=== PATIENT | female | born 1960 | race Caucasian/White ===

== ENCOUNTER 2020-09-02 15:26 | Inpatient (IN) ==
[2020-09-02] MEDS ORDERED: SODIUM CHLORIDE 0.9% 1000ML 1,000 ML IV ONE (15:56)
--- NOTE | 2020-09-02 15:59 | Emergency Department Note ---
Impression & Plan Pulmonary embolus, Right leg DVT, Atrial tachycardia ED Provider Note NAME: ELIZ CHOWDHURY AGE: 60 SEX: F : 1960 ARRIVES VIA: Walk-In INFORMANT: Patient ED PROVIDER(S): Javid Daniels DO CHIEF COMPLAINT: DVT in right calf HPI: Patient is a 60-year-old female who presents to the ER for right calf pain. She notes she hurt her leg at work on 08/12. Since then she has been limping on her right lower extremity and not been using it as much. She denies any weakness but admits to pain. She is set up through [employer]. She has PT/therapy to be scheduled but has not been set up yet. This morning she woke up and is having dull ache in the right calf. She denies any chest pain or shortness of breath. No belly pain nausea vomiting or diarrhea. No dysuria urgency or frequency. No other exacerbating or remitting factors. Denies any blood thinners at this time. ROS: See above HPI for pertinent positives & negatives. A total of 10 systems reviewed and were otherwise negative. PAST MEDICAL HISTORY:See Below PAST SURGICAL HISTORY:See Below FAMILY HISTORY:See Below SOCIAL HISTORY:See Below HOME MEDICATIONS:See Below ALLERGIES:See Below VITALS:See Below PHYSICAL EXAMINATION: GENERAL: Sitting up in bed, alert, well appearing, well nourished, no distress, non-toxic EYE EXAM: normal conjunctiva. OROPHARYNX: no exudate, no erythema, lips, buccal mucosa, and tongue normal and mucous membranes are moist NECK: supple, no nuchal rigidity, no adenopathy, non-tender LUNGS: Clear to auscultation. Normal chest wall mechanics HEART: no murmurs, S1 normal and S2 normal ABDOMEN: abdomen soft, non-tender, normo-active bowel sounds, no masses, no r ebound or guarding. UPPER EXTREMITIES: upper extremities are grossly normal. LOWER EXTREMITIES: No pitting edema. Right calf mildly sore in the mid posterior region. DPs and PTs 2 out of 4 bilaterally. NEURO EXAM: Normal sensorium, cranial nerves II-XII grossly intact, normal speech, no gross weakness of arms, no gross weakness of legs. MEDICAL DECISION MAKING: Patient is a 58-year-old female who presents the ER referred in by PCP as she was found to have a DVT in her right lower extremity. This was reviewed. She was tachycardic with heart rate in the 115. IV was established blood work was obtained. Labs showed mild leukocytosis of 12,000. No significant anemia. INR unremarkable. BMP with a slightly elevated chloride. LFTs bilirubin and troponin was negative. Lipase normal. Covid was negative. CT angio of the chest does show PE with a pneumonitis. She was updated bedside. She had no bleeding risk factors. She was placed on heparin and given a heparin drip and bolus. Discussed with hospitalist admitted for further work-up. Triage Nursing notes reviewed. Limited review of prior medical records performed Vital Signs: reviewed and remarkable for tachy Differential diagnosis: DVT, musculoskeletal, infection, joint effusion, trauma, lymphedema, idiopathic, CHF, as well as other pathologies. ER treatment provided: See below Diagnostics interpreted by me: ECG: Sinus rhythm rate of 96 Left axis No PVCs QTC 437 No significant change from October 2019 Cardiac Monitoring: An order was placed for continuous cardiac monitoring. The monitor shows a rate of 94 with sinus rhythm. Laboratory studies: As stated above and show below. Imaging studies: CT of the chest shows PE Consultation(s): Discussed with hospitalist for further evaluation Procedures: none Critical Care: I have personally spent 31 minutes of critical care time in the direct management of this patient. This includes bedside care, interpretation of diagnostic studies, and testing, discussion with consultants, patient, and family members, and other required patient management activities. This 31 minutes is in excess of all separately billable procedures. Past Med/Surg History Medical History (Updated 09/02/20 @ 19:54 by Javid Daniels DO) Anxiety Dyslipidemia Surgical History (Updated 09/02/20 @ 18:44 by Jamila Moran PA-C) History of hysterectomy Social History (System 11/13/19 @ 08:56 by Armida Sousa) Smoking Status: Former smoker Tobacco Type: Cigarettes Preferred Language: Kuwaiti Feels Safe at Home: Yes Allergies Allergies Allergy/AdvReac Type Severity Reaction Status Date / Time tetracycline Allergy Mild Rash Verified 09/02/20 18:51 lisinopril AdvReac Unknown Cough Verified 09/02/20 18:51 Home Meds Home Medications Medication Instructions Recorded Confirmed paroxetine HCl [Paxil] 40 mg PO QAM 11/12/19 09/02/20 rosuvastatin [Crestor] 10 mg PO QPM 11/12/19 09/02/20 conjugated estrogens [Premarin] 1 applic VAGINAL DIRECTED 09/02/20 09/02/20 ibuprofen 600 mg PO Q8H PRN 09/02/20 09/02/20 Results & Data (ED) Vital Signs Vital Signs - 24 hr 09/02/20 15:28 09/02/20 16:22 09/02/20 16:24 Temperature 36.9 C Temperature Source Oral Pulse Rate 113 H 107 H Pulse Rate [Apical] Pulse Rate from SpO2 Sensor 107 H Respiratory Rate 20 20 Respiratory Effort / Characteristics Non-Labored Spontaneous Respiratory Depth Normal Respiratory Pattern Regular Blood Pressure 147/97 H 149/90 H Blood Pressure [Left Arm] Blood Pressure Mean 113 110 Blood Pressure Mean [Left Arm] Blood Pressure Position Sitting Pulse Oximetry 96 97 96 Oxygen Delivery Method Room Air Room Air Sepsis Recent Fever Within 48 Hours No Sepsis New/Unexplained Change in Mental Status N/A Sepsis Action Taken by Nursing No Action Required 09/02/20 16:28 09/02/20 16:41 09/02/20 17:00 Temperature Temperature Source Pulse Rate 115 H 93 H Pulse Rate [Apical] 94 H Pulse Rate from SpO2 Sensor 101 H 90 Respiratory Rate 22 21 21 Respiratory Effort / Characteristics Respiratory Depth Respiratory Pattern Blood Pressure 138/77 Blood Pressure [Left Arm] 149/90 H Blood Pressure Mean 96 Blood Pressure Mean [Left Arm] 109 Blood Pressure Position Pulse Oximetry 94 96 95 Oxygen Delivery Method Room Air Sepsis Recent Fever Within 48 Hours Sepsis New/Unexplained Change in Mental Status Sepsis Action Taken by Nursing 09/02/20 17:01 09/02/20 17:30 09/02/20 17:40 Temperature Temperature Source Pulse Rate 101 H 95 H Pulse Rate [Apical] Pulse Rate from SpO2 Sensor 93 H 98 H 94 H Respiratory Rate 21 19 Respiratory Effort / Characteristics Respiratory Depth Respiratory Pattern Blood Pressure 137/73 Blood Pressure [Left Arm] Blood Pressure Mean 95 Blood Pressure Mean [Left Arm] Blood Pressure Position Pulse Oximetry 96 95 97 Oxygen Delivery Method Sepsis Recent Fever Within 48 Hours Sepsis New/Unexplained Change in Mental Status Sepsis Action Taken by Nursing 09/02/20 18:00 09/02/20 18:01 09/02/20 18:31 Temperature Temperature Source Pulse Rate 100 H Pulse Rate [Apical] Pulse Rate from SpO2 Sensor 98 H 100 H Respiratory Rate 17 24 18 Respiratory Effort / Characteristics Respiratory Depth Respiratory Pattern Blood Pressure 141/83 H Blood Pressure [Left Arm] Blood Pressure Mean 94 Blood Pressure Mean [Left Arm] Blood Pressure Position Pulse Oximetry 95 95 Oxygen Delivery Method Sepsis Recent Fever Within 48 Hours Sepsis New/Unexplained Change in Mental Status Sepsis Action Taken by Nursing 09/02/20 19:00 Temperature Temperature Source Pulse Rate 96 H Pulse Rate [Apical] Pulse Rate from SpO2 Sensor Respiratory Rate 19 Respiratory Effort / Characteristics Respiratory Depth Respiratory Pattern Blood Pressure 145/85 H Blood Pressure [Left Arm] Blood Pressure Mean 95 Blood Pressure Mean [Left Arm] Blood Pressure Position Pulse Oximetry 96 Oxygen Delivery Method Sepsis Recent Fever Within 48 Hours Sepsis New/Unexplained Change in Mental Status Sepsis Action Taken by Nursing Laboratory Data Result diagrams: 09/02/20 16:14 09/02/20 16:14 Lab Results 09/02/20 09/02/20 09/02/20 Range/Units 16:14 16:14 16:14 WBC 12.25 H (4.8-10.8) K/uL RBC 4.79 (4.2-5.4) M/uL Hgb 15.0 (12.0-16.0) g/dL Hct 44.9 (37-47) % MCV 93.7 (80-100) fL MCH 31.3 (25-34) pg MCHC 33.4 (32-36) g/dL RDW Std Deviation 46.1 (36.4-46.3) fL RDW Coeff of [place] 13.3 (11.5-14.5) % Plt Count 288 (130-400) K/uL MPV 9.0 (7.4-10.4) fL Immature Gran % (Auto) 0.3 % Neut % (Auto) 73.2 % Lymph % (Auto) 15.3 % [place] % (Auto) 7.6 % Eos % (Auto) 3.2 % Baso % (Auto) 0.4 % Neut # (Auto) 8.97 H (1.4-6.5) K/uL Lymph # (Auto) 1.87 (1.2-3.4) K/uL [place] # (Auto) 0.93 H (0.11-0.59) K/uL Eos # (Auto) 0.39 (0-0.5) K/uL Baso # (Auto) 0.05 (0-0.2) K/uL Immature Gran # (Auto) 0.04 H (0.00-0.02) K/uL PT 9.9 (9.0-12.0) Seconds INR 0.9 (0.9-1.1) APTT 22.9 (21.0-31.0) Seconds PTT Ratio 0.8 Sodium 139 (136-145) mmol/L Potassium 3.7 (3.5-5.1) mmol/L Chloride 108 H (98-107) mmol/L Carbon Dioxide 27 (21-32) mmol/L Anion Gap 4.0 (3-11) BUN 12 (7-18) mg/dl Creatinine 0.74 (0.6-1.2) mg/dl Est Cr Clr Drug Dosing 65.8 ml/min Est GFR ( Amer) 100.6 Est GFR (Non-Af Amer) 86.8 BUN/Creatinine Ratio 16.4 (10-20) Glucose 92 (70-99) mg/dl Calcium 9.1 (8.5-10.1) mg/dl Total Bilirubin 0.3 (0.2-1) mg/dl AST 10 L (15-37) U/L ALT 25 (12-78) U/L Alkaline Phosphatase 94 (45-117) U/L Troponin I < 0.015 (0-0.045) ng/ml Total Protein 7.8 (6.4-8.2) gm/dl Albumin 3.6 (3.4-5.0) gm/dl Globulin 4.2 H (2.5-4.0) gm/dl Albumin/Globulin Ratio 0.9 (0.9-2) Lipase 225 (73-393) U/L COVID-19 Eval Order SARS-CoV-2 (PCR) (Negative) Influenza Type A (PCR) (Neg) Influenza Type B (PCR) (Neg) RSV (RT-PCR) (Neg) 09/02/20 09/02/20 Range/Units 18:07 18:07 WBC (4.8-10.8) K/uL RBC (4.2-5.4) M/uL Hgb (12.0-16.0) g/dL Hct (37-47) % MCV (80-100) fL MCH (25-34) pg MCHC (32-36) g/dL RDW Std Deviation (36.4-46.3) fL RDW Coeff of [place] (11.5-14.5) % Plt Count (130-400) K/uL MPV (7.4-10.4) fL Immature Gran % (Auto) % Neut % (Auto) % Lymph % (Auto) % [place] % (Auto) % Eos % (Auto) % Baso % (Auto) % Neut # (Auto) (1.4-6.5) K/uL Lymph # (Auto) (1.2-3.4) K/uL [place] # (Auto) (0.11-0.59) K/uL Eos # (Auto) (0-0.5) K/uL Baso # (Auto) (0-0.2) K/uL Immature Gran # (Auto) (0.00-0.02) K/uL PT (9.0-12.0) Seconds INR (0.9-1.1) APTT (21.0-31.0) Seconds PTT Ratio Sodium (136-145) mmol/L Potassium (3.5-5.1) mmol/L Chloride (98-107) mmol/L Carbon Dioxide (21-32) mmol/L Anion Gap (3-11) BUN (7-18) mg/dl Creatinine (0.6-1.2) mg/dl Est Cr Clr Drug Dosing ml/min Est GFR ( Amer) Est GFR (Non-Af Amer) BUN/Creatinine Ratio (10-20) Glucose (70-99) mg/dl Calcium (8.5-10.1) mg/dl Total Bilirubin (0.2-1) mg/dl AST (15-37) U/L ALT (12-78) U/L Alkaline Phosphatase (45-117) U/L Troponin I (0-0.045) ng/ml Total Protein (6.4-8.2) gm/dl Albumin (3.4-5.0) gm/dl Globulin (2.5-4.0) gm/dl Albumin/Globulin Ratio (0.9-2) Lipase (73-393) U/L COVID-19 Eval Order CovFluRsv at [facility] SARS-CoV-2 (PCR) NEGATIVE (Negative) Influenza Type A (PCR) Negative (Neg) Influenza Type B (PCR) Negative (Neg) RSV (RT-PCR) Negative (Neg) Administered Medications Heparin Sodium/Dextrose (Heparin Sodium/Dextrose) 25,000 units in 500 mls @ 19 mls/hr IV .Q24H MINDY; Protocol Stop: 10/02/20 17:44 Last Admin: 09/02/20 18:28 Dose: 950 units/hr, 19 mls/hr Documented by: [id number] Cosigned by: [id number] Discontinued Medications Heparin Sodium (Porcine) (Heparin Sod (Porcine) 1000 Unit/Ml 10 Ml Vial) Confirm Administered Dose 10,000 units .ROUTE .STK-MED ONE Stop: 09/02/20 18:26 Last Admin: 09/02/20 18:28 Dose: 4,000 units Documented by: [id number] Cosigned by: [id number] Heparin Sodium/Dextrose (Heparin Iv Standard With Bolus) 1 ea IV NOW STA; Protocol Stop: 09/02/20 17:41 Last Admin: 09/02/20 18:32 Dose: 1 ea Documented by: [id number] Sodium Chloride (Nss 1000ml) 1,000 mls @ 999 mls/hr IV .Q1H1M ONE Stop: 09/02/20 16:56 Last Infusion: 09/02/20 18:59 Dose: 0 mls/hr Documented by: [id number] Admin: 09/02/20 16:23 Dose: 999 mls/hr Documented by: [id number] Ioversol (Optiray 320 125ml) 119 ml IV ONCE ONE Stop: 09/02/20 17:16 Last Admin: 09/02/20 17:15 Dose: 119 ml Documented by: [id number] Discharge Plan Visit Data Chief Complaint: Leg Injury/Pain Stated Complaint: RIGHT LEG PAIN ED Provider: Javid Daniels Discharge Problem: Pulmonary embolus, Right leg DVT, Atrial tachycardia Forms Stand Alone Forms: [employer] Prescriptions Prescriptions: No Action paroxetine HCl [Paxil] 40 mg Tablet 40 mg PO QAM RF: 0 rosuvastatin [Crestor] 10 mg Tablet 10 mg PO QPM RF: 0 Premarin 0.625 mg/gram cream 1 applic vaginal DIRECTED RF: 0 ibuprofen 600 mg Tablet 600 mg PO Q8H PRN (Reason: Pain) RF: 0 Discharge Problem: Pulmonary embolus Qualifiers: Pulmonary embolism type: other Chronicity: acute Acute cor pulmonale presence: unspecified Qualified Code(s): I26.99 - Other pulmonary embolism without acute cor pulmonale Right leg DVT Qualifiers: Affected thrombotic vein of extremity: unspecified vein of extremity Chronicity: acute Qualified Code(s): I82.401 - Acute embolism and thrombosis of unspecified deep veins of right lower extremity
[2020-09-02 16:34] LABS: Basophils # (auto) 0.05 K/uL (0-0.2); Basophils % (auto) 0.4 %; Eosinophils # (auto) 0.39 K/uL (0-0.5); Eosinophils % (auto) 3.2 %; Hematocrit (blood only) 44.9 % (37-47); INR 0.9 (0.9-1.1); Immature Granulocytes # (auto) 0.04 K/uL (0.00-0.02); Immature Granulocytes % (auto) 0.3 %; Lymphocytes # (auto) 1.87 K/uL (1.2-3.4); Lymphocytes % (auto) 15.3 %; Mean Corpuscular Hemoglobin 31.3 pg (25-34); Mean Corpuscular Hgb Conc 33.4 g/dL (32-36); Mean Corpuscular Volume 93.7 fL (80-100); Monocytes # (auto) 0.93 K/uL (0.11-0.59); Monocytes % (auto) 7.6 %; Neutrophils # (auto) 8.97 K/uL (1.4-6.5); Neutrophils % (auto) 73.2 %; Partial Thromboplastin Ratio 0.8; Partial Thromboplastin Time 22.9 Seconds (21.0-31.0); Platelet Count 288 K/uL (130-400); Prothrombin Time 9.9 Seconds (9.0-12.0); RDW Coefficient of Variation 13.3 % (11.5-14.5); RDW Standard Deviation 46.1 fL (36.4-46.3); Red Blood Count 4.79 M/uL (4.2-5.4); White Blood Count 12.25 K/uL (4.8-10.8)
[2020-09-02 16:40] LABS: Alanine Aminotransferase 25 U/L (12-78); Albumin Level 3.6 gm/dl (3.4-5.0); Aspartate Aminotransferase 10 U/L (15-37); BUN Creatinine Ratio 16.4 (10-20); Blood Urea Nitrogen 12 mg/dl (7-18); Calcium 9.1 mg/dl (8.5-10.1); Carbon Dioxide 27 mmol/L (21-32); Chloride 108 mmol/L (98-107); Creatinine Clr Calc Pharmacy 65.8 ml/min; Est GFR (African American) 100.6; Est GFR (Non-African American) 86.8; Glucose 92 mg/dl (70-99); Lipase 225 U/L (73-393); Potassium 3.7 mmol/L (3.5-5.1); Sodium 139 mmol/L (136-145)
[2020-09-02 16:45] LABS: Albumin Globulin Ratio 0.9 (0.9-2); Alkaline Phosphatase 94 U/L (45-117); Bilirubin,Total 0.3 mg/dl (0.2-1); Globulin 4.2 gm/dl (2.5-4.0); Total Protein 7.8 gm/dl (6.4-8.2); Troponin I < 0.015 ng/ml (0-0.045)
[2020-09-02] MEDS ORDERED: OPTIRAY 320 125ml IV ONE (17:15)
--- NOTE | 2020-09-02 17:33 | CT Scan Report ---
CT ANGIOGRAM OF THE CHEST CLINICAL HISTORY: Tachypnea. Right leg DVT. COMPARISON STUDY: Chest x-ray dated 11/12/2019 TECHNIQUE: Following the IV administration of 119 mL of Optiray-320, CT angiogram of the thorax was p erformed from the thoracic inlet to the lung bases utilizing the pulmonary embolus protocol. Images a re reviewed in the axial, sagittal, and coronal planes. IV contrast was administered without complica tion. MIP imaging was performed. A dose lowering technique was utilized adhering to the principles o f ALARA. CT DOSE: 268.21 mGy.cm FINDINGS: There is a right hilar lymph node the upper limits of normal in size. There is no pathologic mediasti nal lymphadenopathy There was no evidence of thoracic aortic dilatation. There is a right lower lobe pulmonary artery filling defect indicative of an acute pulmonary embolism . There are no findings to indicate right ventricular strain. No pleural effusions are visualized. There is no lobar consolidation. There are apical blebs. There is dependent groundglass attenuation a telectatic versus infectious. IMPRESSION: 1. Right lower lobe segmental pulmonary embolism 2. Dependent groundglass opacities, atelectatic versus infectious. ACT 112: Negative or not required by law. Electronically signed by: Brandin Zarate M.D. 09/02/2020 5:32 PM
[2020-09-02] MEDS ORDERED: HEPARIN SODIUM/DEXTROSE 25,000 UNITS/500 ML BAG IV SCH (17:45)
[2020-09-02] MEDS ORDERED: HEPARIN SOD (PORCINE) 1000 UNIT/ML 10 ML VIAL ONE (18:25)
--- NOTE | 2020-09-02 18:46 | History & Physical Report ---
Date of Service September 02, 2020 Assessment & Plan (1) Anxiety: (2) Dyslipidemia: (3) Pulmonary embolus: (4) Right leg DVT: Continue outpatient medications, melatonin for sleep, IV heparin, transition to an oral anticoagulant. ROS-No Headache, No Visual Changes, No Nausea, No Vomiting, No Fever, No Chills, No Neck Pain or Stiffness, No Chest Pain, No Palpitations, No SOB, No BURR, No Cough, No Sputum, No Wheezing, No Abdominal Pain, No Diarrhea, No Hematemesis, No Hemoptysis, No Unexpected Weight Loss, No Flank pain, No Melena, No Hematochezia, No Frequency, No Urgency, No Burning, No Hematuria, No Rashes, No Diaphoresis. Appetite is Normal, complains of right calf pain Physical Exam Gen-AAO x 3, NAD, Afebrile Head-NCAT, EOMI, PERRLA, Anicteric Sclera, No Posterior Pharyngeal Erythema Neck-Supple, No JVD, No Thyromegaly, No Masses, No LAD, No Bruits Lungs-Clear to Auscultation Bilaterally, No Rales, No Rhonchi, No Wheezing, No Crepitus Chest-No S4, +S1, +S2, No S3, No Murmurs, No Rubs, No Gallops, No Ectopy Abdomen-Soft, Bowel Sounds Present, Non Tender, Non Distended, No Hepatomegaly, No Splenomegaly, No Palpable Masses, No Rebound, No Rigidity, No Guarding Musculoskeletal-Full Range of Motion Bilaterally, No CVAT, tender right calf without edema Extremities-No Cyanosis, No Clubbing, No Edema Nuero-Cranial Nerves II-XII grossly intact, Motor WNL, DTRs WNL, Strength WNL, Non Focal Psych-Normal Mood History of Present Illness 61-year-old female with a past medical history of hyperlipidemia, depression, and anxiety presents dynamic in the ER with right calf pain. She notes she hurt her leg at work on 08/12. Since then she has been limping on her right lower extremity and not been using it as much. Is been basically sedentary since the incident. She denies any weakness but admits to pain. She is set up through [employer]. She has PT/therapy to be scheduled but has not been set up yet. This morning she woke up and is having dull ache in the right calf. She was found to have a right lower lobe pulmonary embolus on CTA. Past medical historyhypercholesterolemia, anxiety, depression Past surgical historytotal hysterectomy Family historymother of a massive heart attack, father had diabetes and hypertension and dementia. 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 Primary Care Provider: Norma Manning DO Allergies Allergy/AdvReac Type Severity Reaction Status Date / Time tetracycline Allergy Mild RASH Unverified 11/13/19 08:56 Home Medications Medication Instructions Recorded Confirmed Type paroxetine HCl [Paxil] 40 mg PO QAM 11/12/19 11/12/19 History rosuvastatin [Crestor] 10 mg PO QPM 11/12/19 11/12/19 History conjugated estrogens [Premarin] 1 applic VAGINAL DIRECTED 09/02/20 09/02/20 History ibuprofen 600 mg PO Q8H PRN 09/02/20 09/02/20 History Past Med/Surg History Medical History (Updated 09/02/20 @ 18:45 by Tim Elizalde DO) Anxiety Dyslipidemia Surgical History (Updated 09/02/20 @ 18:44 by Jamila Moran PA-C) History of hysterectomy Social History (System 11/13/19 @ 08:56 by Armida Sousa) Smoking Status: Former smoker Tobacco Type: Cigarettes Preferred Language: Macedonian Feels Safe at Home: Yes Results & Data Results & Data ([facility]) Vital Signs (Past 12 Hours) Vital Signs Temp Pulse Pulse Resp BP BP Pulse Ox 09/02/20 18:31 18 09/02/20 18:01 24 95 09/02/20 18:00 100 H 17 141/83 H 95 09/02/20 17:40 95 H 19 137/73 97 09/02/20 17:30 95 09/02/20 17:01 101 H 21 96 09/02/20 17:00 93 H 21 138/77 95 09/02/20 16:41 115 H 21 96 09/02/20 16:28 94 H 22 149/90 H 94 09/02/20 16:24 107 H 20 149/90 H 96 09/02/20 16:22 97 09/02/20 15:28 36.9 C 113 H 20 147/97 H 96 Allergies tetracycline Allergy (Mild, Unverified 11/13/19 08:56) RASH Height/Weight/Isolation Height 5 ft Weight 64 kg Isolation Type Airborne Precautions Chemistry 09/02/20 16:14 Sodium 139 Potassium 3.7 Chloride 108 H Carbon Dioxide 27 Anion Gap 4.0 BUN 12 Creatinine 0.74 Glucose 92
[2020-09-02 19:03] LABS: Influenza A virus by PCR Negative (Neg); Influenza B virus by PCR Negative (Neg); RSV by PCR Negative (Neg); SARS CoV2 RNA(COVID-19) InHosp NEGATIVE (Negative)
[2020-09-02] MEDS: ACETAMINOPHEN 325 MG TAB PO PRN (22:58)
[2020-09-02] MEDS: MELATONIN 3 MG TAB PO PRN (22:59)
[2020-09-02] MEDS: ROSUVASTATIN CALCIUM 10 MG TAB PO SCH (22:59)
[2020-09-03 01:20] LABS: Partial Thromboplastin Ratio 1.8
[2020-09-03 01:23] LABS: Partial Thromboplastin Time 49.8 Seconds (21.0-31.0)
[2020-09-03 07:55] LABS: Hematocrit (blood only) 41.5 % (37-47); Hemoglobin 13.6 g/dL (12.0-16.0); Mean Corpuscular Hemoglobin 30.9 pg (25-34); Mean Corpuscular Hgb Conc 32.8 g/dL (32-36); Mean Corpuscular Volume 94.3 fL (80-100); Mean Platelet Volume 9.3 fL (7.4-10.4); Platelet Count 263 K/uL (130-400); RDW Coefficient of Variation 13.6 % (11.5-14.5); RDW Standard Deviation 46.9 fL (36.4-46.3)
[2020-09-03 08:17] LABS: Partial Thromboplastin Ratio 1.8
[2020-09-03 08:19] LABS: Partial Thromboplastin Time 49.1 Seconds (21.0-31.0)
[2020-09-03 08:42] LABS: BUN Creatinine Ratio 12.7 (10-20); Calcium 9.7 mg/dl (8.5-10.1); Est GFR (African American) 108.7; Est GFR (Non-African American) 93.7; Potassium 3.7 mmol/L (3.5-5.1)
[2020-09-03] MEDS ORDERED: [UNRECOGNIZED DRUG - REMARK] ONE (09:45)
[2020-09-03] MEDS: PARoxetine HCL 20 MG TAB PO SCH (10:36)
[2020-09-03] MEDS: APIXABAN 5 MG TABLET PO SCH ×2 (10:36→20:50)
[2020-09-03] MEDS ORDERED: IBUPROFEN 200 MG TAB PO STA (11:01)
--- NOTE | 2020-09-03 14:28 | Hospitalist Progress Note ---
Date of Service September 03, 2020 Assessment & Plan (1) Anxiety: (2) Dyslipidemia: (3) Pulmonary embolus: (4) Right leg DVT: Continue outpatient medications, melatonin for sleep, IV heparin, transition to an oral anticoagulant. ROS-No Headache, No Visual Changes, No Nausea, No Vomiting, No Fever, No Chills, No Neck Pain or Stiffness, No Chest Pain, No Palpitations, No SOB, No BURR, No Cough, No Sputum, No Wheezing, No Abdominal Pain, No Diarrhea, No Hematemesis, No Hemoptysis, No Unexpected Weight Loss, No Flank pain, No Melena, No Hematochezia, No Frequency, No Urgency, No Burning, No Hematuria, No Rashes, No Diaphoresis. Appetite is Normal, complains of right calf pain Physical Exam Gen-AAO x 3, NAD, Afebrile Head-NCAT, EOMI, PERRLA, Anicteric Sclera, No Posterior Pharyngeal Erythema Neck-Supple, No JVD, No Thyromegaly, No Masses, No LAD, No Bruits Lungs-Clear to Auscultation Bilaterally, No Rales, No Rhonchi, No Wheezing, No Crepitus Chest-No S4, +S1, +S2, No S3, No Murmurs, No Rubs, No Gallops, No Ectopy Abdomen-Soft, Bowel Sounds Present, Non Tender, Non Distended, No Hepatomegaly, No Splenomegaly, No Palpable Masses, No Rebound, No Rigidity, No Guarding Musculoskeletal-Full Range of Motion Bilaterally, No CVAT, tender right calf without edema Extremities-No Cyanosis, No Clubbing, No Edema Nuero-Cranial Nerves II-XII grossly intact, Motor WNL, DTRs WNL, Strength WNL, Non Focal Psych-Normal Mood Admission and Anticipated Discharge Date Admission Date: September 02, 2020 Results & Data Results & Data ([facility]) Vital Signs (Past 12 Hours) Vital Signs Temp Pulse Pulse Pulse Pulse Pulse Resp 09/03/20 11:53 36.5 C 76 16 09/03/20 09:24 92 H 95 H 86 09/03/20 08:26 36.5 C 18 09/03/20 03:30 36.6 C 85 17 Resp Resp Resp BP Pulse Ox Pulse Ox Pulse Ox 09/03/20 11:53 132/85 96 09/03/20 09:24 20 20 18 95 94 09/03/20 08:26 121/82 97 09/03/20 03:30 119/90 96 Pulse Ox 09/03/20 11:53 09/03/20 09:24 94 09/03/20 08:26 09/03/20 03:30 (1) Pulmonary embolus Acute cor pulmonale presence: unspecified Chronicity: acute Pulmonary embolism type: other Qualified Code(s): I26.99 - Other pulmonary embolism without acute cor pulmonale (2) Right leg DVT Affected thrombotic vein of extremity: unspecified vein of extremity Chronicity: acute Qualified Code(s): I82.401 - Acute embolism and thrombosis of unspecified deep veins of right lower extremity
--- NOTE | 2020-09-03 14:34 | Hospitalist Progress Note ---
Date of Service September 03, 2020 Assessment & Plan (1) Anxiety: (2) Dyslipidemia: (3) Pulmonary embolus: (4) Right leg DVT: Patient 61-year-old female with past medical history of depression, hyperlipidemia and anxiety presents to the ED with right lower extremity pain. She reports she had a fall in mid July and she hurt her back. Then she has been mostly bedbound. Ports her family helps her out with every day DVTs. She presented with significant pain in the right lower extremity. She was found to right lower extremity DVT and right lower lobe pulmonary embolus. Recent travel. Denies any recent surgery. No prior history of blood clots. Denies any family history of bleeding disorder. Likely a provoked embolus in the setting of recent fall. Patient is on heparin. Will transition to Eliquis. Patient is in room air. Hemodynamically has been doing fine. Commended patient to have ambulatory pulse ox. Was complaining of significant headache of the left side. Neurological exam is benign. To keep her here today and discharge tomorrow. We will need to follow-up with hematology as an outpatient for further evaluation. Admission and Anticipated Discharge Date Admission Date: September 02, 2020 Subjective Patient is doing okay. Denies any chest pain, shortness of breath or any dizziness at the moment. Hemodynamically have been fine. Does complain of severe headache 8 out of 10 on the left side. No tingling or numbness. Denies any prior history of blood clots. Denies any family history of any bleeding disorders. Any recent travel. Does report that she recently had a fall and has been having back pain. However since her back pain she has been mostly bedbound. Review of Systems Review of Systems: All systems reviewed & are unremarkable except as noted in HPI & below Physical Exam Physical Exam: General: A&Ox3. HENT: NCAT, MMM, EOMI Eyes: PERRLA Neck: Supple, normal range of motion CVS: normal rate and rhythm Resp: b/l decreased breath sounds Abdomen: Soft, nondistended nontender Extremities: No c/c/e Neuro: Gross focal deficits Skin: warm and dry, no rashes/lesions/errythema MSK: normal ROM, no joint swelling/erythema Results & Data Results & Data ([facility]) Vital Signs (Past 12 Hours) Vital Signs Temp Pulse Pulse Pulse Pulse Pulse Resp 09/03/20 11:53 36.5 C 76 16 09/03/20 09:24 92 H 95 H 86 09/03/20 08:26 36.5 C 18 09/03/20 03:30 36.6 C 85 17 Resp Resp Resp BP Pulse Ox Pulse Ox Pulse Ox 09/03/20 11:53 132/85 96 09/03/20 09:24 20 20 18 95 94 09/03/20 08:26 121/82 97 09/03/20 03:30 119/90 96 Pulse Ox 09/03/20 11:53 09/03/20 09:24 94 09/03/20 08:26 09/03/20 03:30 (1) Right leg DVT Affected thrombotic vein of extremity: unspecified vein of extremity Chronicity: acute Qualified Code(s): I82.401 - Acute embolism and thrombosis of unspecified deep veins of right lower extremity (2) Pulmonary embolus Acute cor pulmonale presence: unspecified Chronicity: acute Pulmonary embolism type: other Qualified Code(s): I26.99 - Other pulmonary embolism without acute cor pulmonale
[2020-09-03] MEDS: ACETAMINOPHEN 325 MG TAB PO PRN ×2 (16:15→20:52)
[2020-09-03] MEDS: ROSUVASTATIN CALCIUM 10 MG TAB PO SCH (20:50)
[2020-09-03] MEDS: MELATONIN 3 MG TAB PO PRN (20:52)
[2020-09-04] MEDS: ACETAMINOPHEN 325 MG TAB PO PRN ×3 (00:36→14:08)
[2020-09-04] MEDS ORDERED: traMADol HCL 50 MG TABLET PO PRN (04:51)
[2020-09-04] MEDS: APIXABAN 5 MG TABLET PO SCH (08:37)
[2020-09-04] MEDS: PARoxetine HCL 20 MG TAB PO SCH (09:15)
--- NOTE | 2020-09-04 10:01 | Discharge Summary ---
Date of Service September 04, 2020 Admission HPI Per Admitting Provider 61-year-old female with a past medical history of hyperlipidemia, depression, and anxiety presents dynamic in the ER with right calf pain. She notes she hurt her leg at work on 08/12. Since then she has been limping on her right lower extremity and not been using it as much. Is been basically sedentary since the incident. She denies any weakness but admits to pain. She is set up through [email or web address]. She has PT/therapy to be scheduled but has not been set up yet. This morning she woke up and is having dull ache in the right calf. She was found to have a right lower lobe pulmonary embolus on CTA. Past medical historyhypercholesterolemia, anxiety, depression Past surgical historytotal hysterectomy Family historymother of a massive heart attack, father had diabetes and hypertension and dementia. 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 Admission Exam Per Admitting Provider Gen-AAO x 3, NAD, Afebrile Head-NCAT, EOMI, PERRLA, Anicteric Sclera, No Posterior Pharyngeal Erythema Neck-Supple, No JVD, No Thyromegaly, No Masses, No LAD, No Bruits Lungs-Clear to Auscultation Bilaterally, No Rales, No Rhonchi, No Wheezing, No Crepitus Chest-No S4, +S1, +S2, No S3, No Murmurs, No Rubs, No Gallops, No Ectopy Abdomen-Soft, Bowel Sounds Present, Non Tender, Non Distended, No Hepatomegaly, No Splenomegaly, No Palpable Masses, No Rebound, No Rigidity, No Guarding Musculoskeletal-Full Range of Motion Bilaterally, No CVAT, tender right calf without edema Extremities-No Cyanosis, No Clubbing, No Edema Nuero-Cranial Nerves II-XII grossly intact, Motor WNL, DTRs WNL, Strength WNL, Non Focal Psych-Normal Mood Principal Diagnosis Pulmonary embolism/right lower extremity DVT Discharge Exam General: A&Ox3. HENT: NCAT, MMM, EOMI Eyes: PERRLA Neck: Supple, normal range of motion CVS: normal rate and rhythm Resp: b/l decreased breath sounds Abdomen: Soft, nondistended nontender Extremities: Right lower extremity minimal tenderness appreciated Neuro: Gross focal deficits Skin: warm and dry MSK: normal ROM Discharge Data Allergies Allergy/AdvReac Type Severity Reaction Status Date / Time tetracycline Allergy Mild Rash Verified 09/02/20 18:51 lisinopril AdvReac Unknown Cough Verified 09/02/20 18:51 Consultations 09/02/20 17:53 ED Decision to Admit Stat Ordered Studies 09/02/20 15:56 CT angio chest PE protocol Stat Hospital Course (1) Anxiety: (2) Dyslipidemia: (3) Pulmonary embolus: (4) Right leg DVT: Patient 61-year-old female with past medical history of depression, hyperlipidemia and anxiety presents to the ED with right lower extremity pain. She reports she had a fall in mid July and she hurt her back. Since then she has been mostly bedbound. Reprots her family helps her out with every day activities. She presented with significant pain in the right lower extremity pain. She was found to right lower extremity DVT and right lower lobe pulmonary embolus. Denies any recent travel. Denies any recent surgery. No prior history of blood clots. Denies any family history of bleeding disorder. Patient likely had provoked DVT in the setting of her recent fall. Will likely need minimum 3 months of Eliquis. Will defer the decision to [employer] functional analyst On the day of discharge patient was hemodynamically stable. She was on room air. Patient did not have any complaints except pain in the RLE that was controlled with tylenol. Patient also had ambulatory pulse ox and did not require any oxygen. Patient was discharged home in stable condition. Raffi was advised to come back to ED if RLE pain worsens Paitent is to continue her OP therapy for her recent back pain. Total Time Total Time Spent Total Time Spent (In Minutes): 35 Discharge Plan Discharge Items Patient Disposition: Home - Self-Care Reason For Visit: Pulmonary embolism Activity: Resume your previous activity Non-emergency contact: Primary Care Provider Call non-emergency contact if: your symptoms worsen, your pain is not controlled, your pain is worsening and your pain is unusual for you Follow-up/Referrals: Norma Manning DO [Primary Care Provider] - Diet: Heart Healthy Addtl Attending Provider Instructions: Follow-up with your primary care physician within the next 3 to 5 days. An appointment has been requested. Take Eliquis 10 mg twice daily until 09/09/2020 followed by 5 mg twice daily. You'll need to be seen by [employer] functional analyst. Your primary care physician have been requested for referral. Pending Studies at Discharge: No Stand-Alone Forms: My [facility], Smoking Cessation Medications and DC Order Prescriptions: New Eliquis 5 mg Tablet 5 mg PO BID Qty: 80 RF: 0 Continued paroxetine HCl [Paxil] 40 mg Tablet 40 mg PO QAM RF: 0 rosuvastatin [Crestor] 10 mg Tablet 10 mg PO QPM RF: 0 Premarin 0.625 mg/gram cream 1 applic vaginal DIRECTED RF: 0 Discontinued ibuprofen 600 mg Tablet 600 mg PO Q8H PRN (Reason: Pain) RF: 0 Discharge Orders: Discharge Order (Routine); Ordered 09/04/20 Ordered By: Adrien Fleming Admission Data Admit Date/Time: 09/02/20 18:34 Attending Provider: Adrien Fleming Admit Provider: Tim Elizalde Primary Care Provider: Norma Manning Other Providers: Tim Elizalde
--- NOTE | 2020-09-04 14:54 | Electrocardiogram Report ---
Test Reason : Blood Pressure : / mmHG Vent. Rate : 096 BPM Atrial Rate : 096 BPM P-R Int : 162 ms QRS Dur : 104 ms QT Int : 346 ms P-R-T Axes : 041 -30 012 degrees QTc Int : 437 ms Normal sinus rhythm Left axis deviation Minimal voltage criteria for LVH, may be normal variant Possible Anterior infarct , age undetermined Abnormal ECG No previous ECGs available Confirmed by Librado Downs ([id number]) on 09/04/2020 2:54:04 PM Referred By: REFERRED SELF Confirmed By:Librado Downs
== END 2020-09-04 15:30 | disposition home or self-care (01) | DRG 299 ==
LOC: ED 15:26 → SUATTDRO 18:34 → 2N 18:34
DX: Z79.890 Hormone replacement therapy; E78.5 Hyperlipidemia, unspecified; F41.9 Anxiety disorder, unspecified; R51.9 Headache, unspecified; Z87.891 Personal history of nicotine dependence; Z91.81 History of falling; F32.9 Major depressive disorder, single episode, unspecified; I82.4Z1 Acute embolism and thrombosis of unspecified deep veins of right distal lower extremity; Z79.899 Other long term (current) drug therapy; I26.99 Other pulmonary embolism without acute cor pulmonale

== ENCOUNTER 2024-02-22 11:22 | Inpatient (IN) ==
--- NOTE | 2024-02-22 11:35 | Emergency Department Note ---
History of Present Illness General Chief complaint: Illness Stated complaint: ILLNESS Time Seen by Provider: 02/22/24 11:31 Source: patient, RN notes reviewed and old records reviewed (09/02/20-discharge summary for when she is in the hospital for PE/DVT) Mode of arrival: ambulatory Limitations: no limitations History of Present Illness This patient was seen by myself earlier and I did consult Dr. Webber to see her for admission when he had come down and saw her she declined admission. I went in and talked her at length and told her I was very concerned about her going home as I think she probably did have a stroke and does not seem to be doing well at home. She adamantly declined to be admitted I offered to do an MRI in the ER and she also declined this she says she just wanted to go home. I could not convince her otherwise and she was discharged. Very shortly after being discharged she went out to her car and got her bag and changed her mind and came back in. she now is willing to stay there is nothing else that is changed Home Medications Medication Instructions Recorded Confirmed Type albuterol sulfate 90 mcg/actuation 2 puff inhalation Q4H PRN 02/22/24 02/22/24 History aerosol inhaler Wheezing/SOB alirocumab 75 mg/mL subcutaneous 75 mg subcut Q14D 02/22/24 02/22/24 History pen injector (Praluent Pen) clonazepam 0.5 mg tablet 0.5 mg PO BID PRN Unknown 02/22/24 02/22/24 History escitalopram oxalate 20 mg tablet 20 mg PO DAILY 02/22/24 02/22/24 History fluticasone furoate 100 1 inh inhalation QAM 02/22/24 02/22/24 History mcg-vilanterol 25 mcg/dose inhalation powder (Breo Ellipta) hydroxyzine HCl 25 mg tablet 25 mg PO QID PRN Unknown 02/22/24 02/22/24 History losartan 25 mg tablet 25 mg PO DAILY 02/22/24 02/22/24 History pantoprazole 40 mg tablet,delayed 40 mg PO BID 02/22/24 02/22/24 History release prazosin 1 mg capsule 1 mg PO DAILY 02/22/24 02/22/24 History propranolol 10 mg tablet 10 mg PO TID 02/22/24 02/22/24 History Allergies Allergy/AdvReac Type Severity Reaction Status Date / Time tetracycline Allergy Mild Anaphylaxis Verified 02/22/24 10:34 lisinopril AdvReac Unknown Anaphylaxis Verified 02/22/24 10:34 Past Med/Surg History Problem List (Updated 02/22/24 @ 13:05 by Clovis Bernal MD) Dyslipidemia Anxiety Dehydration (Acute) Slurring of speech (Acute) Dysphagia (Acute) Stroke-like symptoms (Acute) Chest pain Encounter for pre-operative examination Medical History GERD (gastroesophageal reflux disease) Anxiety Hyperlipidemia Atrial tachycardia Remote episodes several years ago (felt possibly r/t caffeine), no issues since Right leg DVT Per remote records Pulmonary embolus Per remote records Anxiety Dyslipidemia Surgical History History of arthroscopy Right shoulder History of bladder surgery History of hysterectomy Social History Smoking Status: Never smoker Tobacco Type: Cigarettes Second Hand Exposure: No; Do You Dip or Chew Tobacco: No; Hx Alcohol Use: Yes Hx Substance Use: No Preferred Language: Niuean Communication Ability: Effective Firefighting Equipment Specialist Required: No Beliefs That Will Affect Care: None Current Living Situation: Family Feels Safe at Home: Yes Gender Identity: Female Assistive Devices: Denture - Upper, Denture - Lower and Glasses Review of Systems A total of 10 systems reviewed and were otherwise negative Physical Exam Vital Signs Vital Signs - 24 hr 02/22/24 11:39 02/22/24 11:50 Temperature 36.9 C Temperature Source Oral Pulse Rate 90 93 H Respiratory Rate 20 Respiratory Effort / Characteristics Non-Labored Spontaneous Respiratory Depth Normal Blood Pressure 142/76 H Blood Pressure Mean 98 Pulse Oximetry 91 Oxygen Delivery Method Room Air Sepsis Recent Fever Within 48 Hours No Sepsis New/Unexplained Change in Mental Status N/A Sepsis Action Taken by Nursing No Action Required General: Well developed well nourished middle-age female who appears in no acute distress, breathing comfortably on room air. Normal speech HEENT: Normal cephalic atraumatic. Pupils are equal round and reactive to light. Extraocular movements are intact. Oropharynx is pink with moist mucous membranes. No swelling of the mouth lips or tongue. Neck: Supple with a midline trachea. No meningeal signs or stiffness, no JVD or bruits. No Stridor. Chest: Clear to auscultation bilaterally. No wheezes or rhonchi. No increased work of breathing. Heart: Regular rate and rhythm without murmurs or gallops. Abdomen: Soft nontender, nondistended without rebound guarding or rigidity. Extremities: No cyanosis clubbing or edema. No calf tenderness or assymetry Spine/Back. Non tender to palpation. No CVA tenderness Skin: Good turgor without rashes. Neurologic exam: She does have some dysphagia but when talking she is able to use words but they are somewhat slurred. Her neurologic exam is unchanged from when I saw her earlier cranial nerves two through 12 are intact. Motor and sensation are intact and symmetrical throughout. Medical Decision Making Differential Diagnosis CVA, dysphagia, electrolyte or metabolic abnormality, infection Medical Records Attestation: I reviewed the patient's medical records. Home Medications Current Medication List: was personally reviewed by me Laboratory Data Attestation: I reviewed the patient's lab results. MDM Narrative This patient comes in as scribed above she had a full workup done earlier but refused admission . she went out to her car and changed her mind she came back in. There nothing's been changed , she has been stable we did consult Dr. Webber again and advised that she was now willing to be admitted. She will be admitted/observed for further inpatient treatment and evaluation Continuous cardiac monitoring: Orders placed in EMR for continuous cardiac monitoring: Upon my evaluation patient was noted to be in normal sinus rhythm rate of 90 Impression & Plan Stroke-like symptoms, Dysphagia, Dehydration Discharge Plan Visit Data Chief Complaint: Illness Stated Complaint: ILLNESS ED Provider: Clovis Bernal Discharge Problem: Stroke-like symptoms, Dysphagia, Dehydration Forms Stand Alone Forms: My [facility] Prescriptions Prescriptions: No Action prazosin 1 mg capsule 1 mg PO DAILY clonazepam 0.5 mg tablet 0.5 mg PO BID PRN (Reason: Unknown) propranolol 10 mg tablet 10 mg PO TID pantoprazole 40 mg tablet,delayed release (DR/EC) 40 mg PO BID losartan 25 mg tablet 25 mg PO DAILY hydroxyzine HCl 25 mg tablet 25 mg PO QID PRN (Reason: Unknown) albuterol sulfate 90 mcg/actuation HFA aerosol inhaler 2 puff INHALATION Q4H PRN (Reason: Wheezing/SOB) escitalopram oxalate 20 mg tablet 20 mg PO DAILY fluticasone furoate-vilanterol [Breo Ellipta] 100-25 mcg/dose blister with device 1 inh INHALATION QAM Praluent Pen 75 mg/mL pen injector 75 mg SUBCUT Q14D Referrals Referrals: Scott Joseph MD [Primary Care Provider] -
--- NOTE | 2024-02-22 12:15 | History & Physical Report ---
Date of Service February 22, 2024 Assessment & Plan (1) Slurring of speech: Plan: Presented to ER with ongoing slurred speech/garbled speech as per the patient and the family members No significant change in voice during my examination Possible strokelike symptoms without any other evidence of neurodeficit and during my examination CT scan of the head has been negative and will get MRI and further stroke workup Get a neurology consult routinely Start baby aspirin (2) Stroke-like symptoms: Plan: As above (3) Dysphagia: Plan: She has been complaining of problem with swallowing and also dysphonia Has been going on for 2 weeks denies any sore throat or any pain with swallowing Will ask for speech evaluation (4) Dyslipidemia: Plan: She is intolerant to statin Getting alirocumab subcu injection every 14 days Other significant medical condition remained stable and as below Mild cognitive impairment History of pulmonary embolism off any anticoagulation for years History of controlled substance use Lumbar facet arthropathy Panic disorder without agoraphobia Plan DVT prophylaxis Subcu heparin CODE STATUS Full History of Present Illness Chief Complaint: Change in voice with possible garbled speech, problem with swallowing for the last 2 weeks Primary Care Provider: Scott Joseph MD She is a 63-year-old female with significant past medical history including major depressive disorder, anxiety with panic attacks, hyperlipidemia, history of pulmonary embolism not on any anticoagulation, mild cognitive impairment and YAS apparently has been complaining of change in her voice with occasional garbled speech and also occasional problem with swallowing for the last 2 weeks. She was brought in with possible strokelike symptoms but denies any problem with vision, any numbness or tingling involving any of the extremities or in the face, any facial asymmetry, any focal weakness involving any of the limbs. When asking questions she denies to have any chest pain, palpitation but she does have occasional shortness of breath with exertion with known history of possible asthma. She denies any abdominal pain, nausea and or vomiting. No problem with urine and her bowel habit. Her initial workup including CT of the head remained unremarkable and she will be admitted to medical telemetry unit with a possible diagnosis of strokelike symptoms and will have a neurological evaluation. An MRI will be done and also echo of the heart will be done. Allergies Allergy/AdvReac Type Severity Reaction Status Date / Time tetracycline Allergy Mild Anaphylaxis Verified 02/22/24 10:34 lisinopril AdvReac Unknown Anaphylaxis Verified 02/22/24 10:34 Home Medications Medication Instructions Recorded Confirmed Type albuterol sulfate 90 mcg/actuation 2 puff inhalation Q4H PRN 02/22/24 02/22/24 History aerosol inhaler Wheezing/SOB alirocumab 75 mg/mL subcutaneous 75 mg subcut Q14D 02/22/24 02/22/24 History pen injector (Praluent Pen) clonazepam 0.5 mg tablet 0.5 mg PO BID PRN Unknown 02/22/24 02/22/24 History escitalopram oxalate 20 mg tablet 20 mg PO DAILY 02/22/24 02/22/24 History fluticasone furoate 100 1 inh inhalation QAM 02/22/24 02/22/24 History mcg-vilanterol 25 mcg/dose inhalation powder (Breo Ellipta) hydroxyzine HCl 25 mg tablet 25 mg PO QID PRN Unknown 02/22/24 02/22/24 History losartan 25 mg tablet 25 mg PO DAILY 02/22/24 02/22/24 History pantoprazole 40 mg tablet,delayed 40 mg PO BID 02/22/24 02/22/24 History release prazosin 1 mg capsule 1 mg PO DAILY 02/22/24 02/22/24 History propranolol 10 mg tablet 10 mg PO TID 02/22/24 02/22/24 History Past Med/Surg History Problem List (Updated 02/22/24 @ 12:10 by Russell Webber MD) Dyslipidemia Anxiety Dehydration (Acute) Slurring of speech (Acute) Dysphagia (Acute) Stroke-like symptoms (Acute) Chest pain Encounter for pre-operative examination Medical History GERD (gastroesophageal reflux disease) Anxiety Hyperlipidemia Atrial tachycardia Remote episodes several years ago (felt possibly r/t caffeine), no issues since Right leg DVT Per remote records Pulmonary embolus Per remote records Anxiety Dyslipidemia Surgical History History of arthroscopy Right shoulder History of bladder surgery History of hysterectomy Social History Smoking Status: Never smoker Tobacco Type: Cigarettes Second Hand Exposure: No; Do You Dip or Chew Tobacco: No; Hx Alcohol Use: Yes Hx Substance Use: No Preferred Language: Sierra Leonean Communication Ability: Effective Restaurant Hospitality Manager Required: No Beliefs That Will Affect Care: None Current Living Situation: Family Feels Safe at Home: Yes Gender Identity: Female Assistive Devices: Denture - Upper, Denture - Lower and Glasses Review of Systems Review of Systems: All systems reviewed and are unremarkable except as noted below Physical Exam Physical Exam: Lying in bed very anxious but no other apparent distress Constitutional: + ill appearing and + thin Eyes: PERRL, conjunctivae normal, anicteric sclerae ENMT: external ear and nose normal, oropharynx normal Neck: trachea midline, no thyromegaly Respiratory: no respiratory distress Auscultation: + diminished lung sounds; no crackles and no wheezes Cardiovascular: Rate/Rhythm: regular rate and regular rhythm; not tachycardic Heart Sounds: normal S1, normal S2 and + murmur (1/6 to 2/6 ESM over precordium) Extremities: no edema Gastrointestinal (Abdomen): Inspection/Auscultation: normal bowel sounds; abdomen not distended Percussion/Palpation: abdomen soft; abdomen nontender Musculoskeletal: No acute arthritis involving any of the joints Neurologic: normal touch/pain/proprioception and moves all extremities; no focal motor deficits Speech / Cognition: + abnormal speech (Has had garbled speech as per the patient. No difficulty in word finding) Besides questionable dysphasia/garbled speech no other neurodeficit noted Psychiatric: Mood: + anxious mood Lymphatic: no cervical or axillary lymphadenopathy Results & Data Results & Data Vital Signs (Past 12 Hours) Vital Signs Temp Pulse Resp BP Pulse Ox O2 Del Method 02/22/24 11:50 93 H 02/22/24 11:39 36.9 C 90 20 142/76 H 91 Room Air Medications Administered Current Inpatient Medications Heparin Sodium (Porcine) (Heparin Sod 5,000 Unit/0.5 Ml Vial) 5,000 units SQ Q 12 MINDY Stop: 03/23/24 20:59 Code Status & VTE Plan VTE Prophylaxis Plan VTE Prophylaxis will be ordered: Yes
[2024-02-22] MEDS: OPTIRAY 320 125ml IV ONE (13:36)
--- NOTE | 2024-02-22 14:32 | CT Scan Report ---
CT angio neck with con, CT angio head w con CLINICAL HISTORY: stroke like symptoms TECHNIQUE: CT angiography of the head and neck was performed following intravenous administration of iodinated contrast. Coronal and sagittal MIPS were obtained from the axial data set and were submitt ed for review. Automated dose lowering techniques and/or adjustment according to patient size were u tilized for this examination. All measurements were calculated based on NASCET criteria. CT DOSE: 346.36 mGy.cm Comparison: Comparison is made to CT head 02/22/2024 FINDINGS: Lungs and soft tissues are unremarkable. CTA Neck: The left common carotid artery shares common origin with the innominate artery. There is n o significant atherosclerotic plaque in the aortic arch or the origins of the innominate, left common carotid, and left subclavian arteries. The common carotid, external carotid, cervical segments of t he internal carotid arteries, and the cervical segments of the vertebral arteries are patent without hemodynamically significant stenosis. The left vertebral artery is dominant. CTA Head: The anterior and posterior cerebral circulations are patent. No hemodynamically significan t stenosis, aneurysm, dissection, or arteriovenous malformation is shown. IMPRESSION: 1. No occlusion, hemodynamically significant stenosis, or dissection in the major cervical arteries. 2. No occlusion, hemodynamically significant stenosis, aneurysm, dissection, or arteriovenous malfor mation in the major intracranial arteries. Assessment of stenosis of the internal carotid arteries is based on NASCET criteria. ACT 112: Negative or not required by law. Electronically signed by: Rodger Baeza M.D. 02/22/2024 2:30 PM
[2024-02-22] MEDS ORDERED: ALBUTEROL HFA 8 GM INHALER INH PRN (16:06)
[2024-02-22] MEDS: PROPRANOLOL HCL 10 MG TAB PO SCH (17:20)
[2024-02-22] MEDS: ASPIRIN 81 MG ECTAB PO STA (17:20)
[2024-02-22] MEDS ORDERED: Nursing to Pharmacy Communication SCH (19:30)
[2024-02-22] MEDS: clonazePAM 0.5 MG TAB PO PRN (20:38)
[2024-02-22] MEDS: PANTOprazole 40 MG TAB PO SCH (20:38)
[2024-02-22] MEDS: HEPARIN SOD 5,000 UNIT/0.5 ML VIAL SQ SCH (20:39)
[2024-02-23] MEDS: ACETAMINOPHEN 325 MG TAB PO STA (05:22)
[2024-02-23 07:21] LABS: Basophils # (auto) 0.06 K/uL (0.00-0.20); Basophils % (auto) 0.7 %; Eosinophils # (auto) 0.21 K/uL (0.00-0.50); Eosinophils % (auto) 2.3 %; Hematocrit (blood only) 43.4 % (37.0-47.0); Hemoglobin 13.8 g/dl (12.0-16.0); Immature Granulocytes # (auto) 0.03 K/uL (0.01-0.20); Immature Granulocytes % (auto) 0.3 %; Lymphocytes # (auto) 1.37 K/uL (1.20-3.40); Mean Corpuscular Hemoglobin 30.9 pg (25.0-34.0); Mean Corpuscular Hgb Conc 31.8 g/dL (32.0-36.0); Mean Corpuscular Volume 97.1 fL (80.0-100.0); Mean Platelet Volume 9.6 fL (9.4-12.4); Monocytes # (auto) 0.71 K/uL (0.11-0.59); Monocytes % (auto) 7.8 %; Neutrophils # (auto) 6.74 K/uL (1.40-6.50); Neutrophils % (auto) 73.9 %; Platelet Count 200 K/uL (130-400); RDW Coefficient of Variation 12.6 % (11.5-14.5); RDW Standard Deviation 44.9 fL (36.4-46.3); Red Blood Count 4.47 M/uL (4.20-5.40); White Blood Count 9.12 K/ul (4.8-10.8)
[2024-02-23 07:36] LABS: Anion Gap 5 (3-11); BUN Creatinine Ratio 12.9 (10-20); Blood Urea Nitrogen 8 mg/dl (6-23); Calcium 9.6 mg/dl (8.6-10.3); Carbon Dioxide 34 mmol/L (21-32); Chloride 100 mmol/L (98-107); Chol HDL Ratio 2.2 (0-5); Cholesterol 116 mg/dl (0-200); Creatinine Clr Calc Pharmacy 55.1 ml/min; Est GFR (African American) 109.7 ml/min; Est GFR (Non-African American) 94.6 ml/min; Glucose 88 mg/dl (70-99(Fasting)); HDL Cholesterol 53 mg/dl; LDL Cholesterol Calculated 29 mg/dl; Sodium 139 mmol/L (136-145); Triglycerides 171 mg/dl (0-150); VLDL Cholesterol 34 mg/dl (0-30)
[2024-02-23] MEDS: ESCITALOPRAM OXALATE 20 MG TAB PO SCH (08:22)
[2024-02-23] MEDS: LOSARTAN POTASSIUM 25 MG TAB PO SCH (08:23)
[2024-02-23] MEDS: FLUTICASONE/VILANTEROL 100/25MCG 14 PUFFS/INHALER INH SCH (08:23)
--- NOTE | 2024-02-23 08:50 | Neurology Consultation ---
Date of Consultation February 23, 2024 Assessment & Plan (1) Dysphagia: Progressive dysphagia with voice changes over the last several months with significant weight loss in a 63F with a PMH of anxiety, tobacco abuse, and HTN. Her exam is largely non-focal and and imaging has been unremarkable. She describes an isolated difficulty swallowing with significant weight loss over the last 6 months. Initially this started will solids and then has progressed to liquids and during this time her voice has changed and she has generally become weaker. Personally i think stroke is unlikely as there hasn't been an acute change in her symptoms but more of a chronic decline. A disorder of muscle is possible but swallowing does appear to be the primary issue. Plan -- can continue ASA -- would check myasthenia panel -- check CK -- INSULATION ESTIMATOR evaluation of swallowing -- outpatient neurology follow up Telehealth Consultation Telehealth Information Telehealth Information: I performed this visit using a real-time telehealth connection between my location and the patients location ([facility]). After connecting through interactive tele-video, patient was identified by name and date of and/or wristband check.Patient (or authorized healthcare medical sales representative) was informed that this was a telemedicine visit and it was being conducted confidentially over secure lines. My office door was closed and no one else was present in the room with me.Patient (or authorized healthcare medical sales representative) provided consent to proceed with the visit, expressed an understanding of privacy and security of the telemedicine visit, and gave permission to have a hospital medical sales representative in the room in order to assist with the visit and to conduct portions of the visit, as needed. I informed the patient (or authorized healthcare medical sales representative) that I reviewed their record and presented the opportunity for them to ask any questions regarding the visit today. The patient agreed to participate. History of Present Illness Reason for Consultation: stroke like symptoms Attending Physician: Alexandro Felix MD History of Present Illness Sarah Petit is a 63F with a PMH of HLD, Anxiety, who presents with intermittent dysphagia and jumbled speech. She reports that she has lost 45 pounds since last fall and she doesn't know why. She thinks it is because she is having trouble swallowing and since last month her voice is changed and the only thing she can do is drink. She does report choking and coughing when eating solids. She denies double vision, or ptosis. She denies any recent or sudden new neurologic symptoms. She came to the hospital yesterday because of the increasing difficulty eating and she is just having a hard time with life. She lives alone. Allergies Allergy/AdvReac Type Severity Reaction Status Date / Time tetracycline Allergy Mild Anaphylaxis Verified 02/22/24 10:34 lisinopril AdvReac Unknown Anaphylaxis Verified 02/22/24 10:34 Home Medications Medication Instructions Recorded Confirmed Type albuterol sulfate 90 mcg/actuation 2 puff inhalation Q4H PRN 02/22/24 02/22/24 History aerosol inhaler Wheezing/SOB alirocumab 75 mg/mL subcutaneous 75 mg subcut Q14D 02/22/24 02/22/24 History pen injector (Praluent Pen) clonazepam 0.5 mg tablet 0.5 mg PO BID PRN Unknown 02/22/24 02/22/24 History escitalopram oxalate 20 mg tablet 20 mg PO DAILY 02/22/24 02/22/24 History fluticasone furoate 100 1 inh inhalation QAM 02/22/24 02/22/24 History mcg-vilanterol 25 mcg/dose inhalation powder (Breo Ellipta) hydroxyzine HCl 25 mg tablet 25 mg PO QID PRN Unknown 02/22/24 02/22/24 History losartan 25 mg tablet 25 mg PO DAILY 02/22/24 02/22/24 History pantoprazole 40 mg tablet,delayed 40 mg PO BID 02/22/24 02/22/24 History release prazosin 1 mg capsule 1 mg PO DAILY 02/22/24 02/22/24 History propranolol 10 mg tablet 10 mg PO TID 02/22/24 02/22/24 History Patient History Medical History GERD (gastroesophageal reflux disease) Anxiety Hyperlipidemia Atrial tachycardia Remote episodes several years ago (felt possibly r/t caffeine), no issues since Right leg DVT Per remote records Pulmonary embolus Per remote records Anxiety Dyslipidemia Surgical History History of arthroscopy Right shoulder History of bladder surgery History of hysterectomy Social History Smoking Status: Former smoker Tobacco Type: Cigarettes Second Hand Exposure: No; Do You Dip or Chew Tobacco: No; Hx Alcohol Use: No Hx Substance Use: No Preferred Language: Mohawk Communication Ability: Effective Manager Global Required: No Beliefs That Will Affect Care: None Current Living Situation: Alone Other Information That Helps Us Care for You: No Feels Safe at Home: Yes Safety Concerns: Feels Safe At This Time Gender Identity: Female Assistive Devices: Denture - Upper, Denture - Lower and Glasses Review of Systems see HPI Physical Exam Mental Status:alert, oriented to time, place, person, normal recent memory, normal remote memory, normal attention span, normal concentration, normal language, and normal fund of knowledge Cranial Nerves: CN 2 - no visual defect on confrontation and pupils round, equal, reactive to light CN 3, 4, 6 - extra-ocular movements intact and no nystagmus CN 5 - facial sensation intact CN 7 - no facial asymmetry CN 8 - intact hearing CN 9, 10 - ANTONIO CN 11 - good shoulder shrug CN 12 - tongue midline MOTOR: Strength was at least antigravity throughout, Pronator drift was absent, and There were no abnormal movements SENSATION: intact to light touch GAIT: deferred COORDINATION: no ataxia with finger to nose testing and heel to hooper testing REFLEXES: cannot assess over telemedicine Results & Data Vital Signs (Past 12 Hours) Vital Signs Temp Pulse Pulse Resp BP Pulse Ox O2 Del Method 02/23/24 07:48 36.8 C 88 16 99/59 L 93 Nasal Cannula 02/23/24 07:25 81 02/23/24 04:13 36.6 C 79 18 101/84 98 Nasal Cannula 02/22/24 23:45 92 Nasal Cannula 02/22/24 23:41 36.6 C 81 16 107/69 84 L Room Air 02/22/24 22:48 82 O2 Flow Rate 02/23/24 07:48 2 02/23/24 07:25 02/23/24 04:13 2 02/22/24 23:45 2 02/22/24 23:41 02/22/24 22:48 Laboratory Results Abnormal Lab Results 02/23/24 02/23/24 05:47 07:40 WBC 9.12 RBC 4.47 Hgb 13.8 Hct 43.4 MCV 97.1 MCH 30.9 MCHC 31.8 L RDW Std Deviation 44.9 RDW Coeff of Lakeisha 12.6 Plt Count 200 MPV 9.6 Immature Gran % (Auto) 0.3 Neut % (Auto) 73.9 Lymph % (Auto) 15.0 [place] % (Auto) 7.8 Eos % (Auto) 2.3 Baso % (Auto) 0.7 Neut # (Auto) 6.74 H Lymph # (Auto) 1.37 [place] # (Auto) 0.71 H Eos # (Auto) 0.21 Baso # (Auto) 0.06 Immature Gran # (Auto) 0.03 Sodium 139 Potassium TNP 4.8 Chloride 100 Carbon Dioxide 34 H Anion Gap 5 BUN 8 Creatinine 0.62 Est Cr Clr Drug Dosing 55.1 Est GFR ( Amer) 109.7 Est GFR (Non-Af Amer) 94.6 BUN/Creatinine Ratio 12.9 Glucose 88 Calcium 9.6 Triglycerides 171 H Cholesterol 116 LDL Cholesterol, Calc 29 VLDL Cholesterol, Calc 34 H HDL Cholesterol 53 Cholesterol/HDL Ratio 2.2 Diagnostic Findings Head CTA 02/22/24 12:15 CT angio neck with con, CT angio head w con CLINICAL HISTORY: stroke like symptoms TECHNIQUE: CT angiography of the head and neck was performed following intravenous administration of iodinated contrast. Coronal and sagittal MIPS were obtained from the axial data set and were submitted for review. Automated dose lowering techniques and/or adjustment according to patient size were utilized for this examination. All measurements were calculated based on NASCET criteria. CT DOSE: 346.36 mGy.cm Comparison: Comparison is made to CT head 02/22/2024 FINDINGS: Lungs and soft tissues are unremarkable. CTA Neck: The left common carotid artery shares common origin with the innominate artery. There is no significant atherosclerotic plaque in the aortic arch or the origins of the innominate, left common carotid, and left subclavian arteries. The common carotid, external carotid, cervical segments of the internal carotid arteries, and the cervical segments of the vertebral arteries are patent without hemodynamically significant stenosis. The left vertebral artery is dominant. CTA Head: The anterior and posterior cerebral circulations are patent. No hemodynamically significant stenosis, aneurysm, dissection, or arteriovenous malformation is shown. IMPRESSION: 1. No occlusion, hemodynamically significant stenosis, or dissection in the major cervical arteries. 2. No occlusion, hemodynamically significant stenosis, aneurysm, dissection, or arteriovenous malformation in the major intracranial arteries. Assessment of stenosis of the internal carotid arteries is based on NASCET criteria. ACT 112: Negative or not required by law. Electronically signed by: Rodger Baeza M.D. 02/22/2024 2:30 PM Neck CTA 02/22/24 12:15 CT angio neck with con, CT angio head w con CLINICAL HISTORY: stroke like symptoms TECHNIQUE: CT angiography of the head and neck was performed following intravenous administration of iodinated contrast. Coronal and sagittal MIPS were obtained from the axial data set and were submitted for review. Automated dose lowering techniques and/or adjustment according to patient size were utilized for this examination. All measurements were calculated based on NASCET criteria. CT DOSE: 346.36 mGy.cm Comparison: Comparison is made to CT head 02/22/2024 FINDINGS: Lungs and soft tissues are unremarkable. CTA Neck: The left common carotid artery shares common origin with the innominate artery. There is no significant atherosclerotic plaque in the aortic arch or the origins of the innominate, left common carotid, and left subclavian arteries. The common carotid, external carotid, cervical segments of the internal carotid arteries, and the cervical segments of the vertebral arteries are patent without hemodynamically significant stenosis. The left vertebral artery is dominant. CTA Head: The anterior and posterior cerebral circulations are patent. No hemodynamically significant stenosis, aneurysm, dissection, or arteriovenous malformation is shown.
[2024-02-23] MEDS ORDERED: PRAZOSIN HCL 1 MG CAP PO SCH (09:00)
--- NOTE | 2024-02-23 11:30 | Hospitalist Progress Note ---
Date of Service February 23, 2024 Assessment & Plan (1) Slurring of speech: Plan: Presented to ER with ongoing slurred speech/garbled speech as per the patient and the family members No significant change in voice Possible strokelike symptoms without any other evidence of neurodeficit and during examination on admission CT head, CTA head and neck - negative. pt is refusing brain MRI Started baby aspirin Neurology consulted and discussed with - Progressive dysphagia with voice changes over the last several months with significant weight loss in a 63F with a PMH of anxiety, tobacco abuse, and HTN. Her exam is largely non-focal and and imaging has been unremarkable. She describes an isolated difficulty swallowing with significant weight loss over the last 6 months. Initially this started will solids and then has progressed to liquids and during this time her voice has changed and she has generally become weaker. Personally i think stroke is unlikely as there hasn't been an acute change in her symptoms but more of a chronic decline. A disorder of muscle is possible but swallowing does appear to be the primary issue. Plan -- can continue ASA -- would check myasthenia panel - ordered -- check CK - normal level -- TESTER SEMICONDUCTOR PACKAGES evaluation of swallowing - obtained - pt is not aspirating, has difficulty chewing, also has loose dentures -- outpatient neurology follow up (2) Stroke-like symptoms: Plan: As above (3) Dysphagia: Plan: She has been complaining of problem with swallowing and also dysphonia Has been going on for 2 weeks denies any sore throat or any pain with swallowing speech evaluation obtained, as above (4) Dyslipidemia: Plan: She is intolerant to statin Getting alirocumab subcu injection every 14 days Other significant medical condition remained stable and as below Mild cognitive impairment History of pulmonary embolism off any anticoagulation for years History of controlled substance use Lumbar facet arthropathy Panic disorder without agoraphobia Plan DVT prophylaxis Subcu heparin CODE STATUS Full Admission and Anticipated Discharge Date Admission Date: February 22, 2024 Subjective Pt seen in follow up of stroke-like symptoms , dysphagia Seen by neurology - and discussed with - not likely stroke - myasthenia lab work , ck ordered - follow up with outpt neurology Speech eval ordered - and discussed with - pt is not aspirating, issues w/ chewing Currently sitting up in bed in NAD no fevers, chills, chest pain, shortness of breath, or abd. pain speech is somewhat slurred, has loose dentures Review of Systems Review of Systems: All systems reviewed & are unremarkable except as noted in Subjective Physical Exam Physical Exam: Physical Exam: Constitutional: + chronically ill appearing, slim F in NAD Eyes: PERRL, conjunctiva e normal, anicteri c sclerae ENMT: external ear and n ose normal, oropha rynx normal Neck: supple Respiratory: no respiratory dis tress Auscultatio n: + diminished oscar ng sounds; no crac kles and no wheeze s Cardiovascular: Rate/Rhythm: regul ar rate and regula r rhythm; not tach ycardic Heart Елена nds: normal S1, no rmal S2 and + murm ur Extremities: no edema Gastrointestinal ( Abdomen): Inspection/Auscult ation: normal jonah l sounds; abdomen not distended Per cussion/Palpation: abdomen soft; abd omen nontender Musculoskeletal: moves extremities Neurologic: no focal motor def icits Speech / Co gnition: + abnorma l speech (Has had garbled speech as per the patient. No difficulty in w ord finding, she d oes have loose den tures) Besides q uestionable dyspha tiffanie/garbled speech no other neurodef icit noted Results & Data Results & Data Vital Signs (Past 12 Hours) Vital Signs Temp Pulse Pulse Resp BP Pulse Ox O2 Del Method 02/23/24 07:48 36.8 C 88 16 99/59 L 93 Nasal Cannula 02/23/24 07:25 81 02/23/24 04:13 36.6 C 79 18 101/84 98 Nasal Cannula 02/22/24 23:45 92 Nasal Cannula 02/22/24 23:41 36.6 C 81 16 107/69 84 L Room Air O2 Flow Rate 02/23/24 07:48 2 02/23/24 07:25 02/23/24 04:13 2 02/22/24 23:45 2 02/22/24 23:41 Laboratory Results 02/23/24 02/23/24 02/23/24 Range/Units 09:41 07:40 05:47 WBC 9.12 (4.8-10.8) K/ul RBC 4.47 (4.20-5.40) M/uL Hgb 13.8 (12.0-16.0) g/dl Hct 43.4 (37.0-47.0) % MCV 97.1 (80.0-100.0) fL MCH 30.9 (25.0-34.0) pg MCHC 31.8 L (32.0-36.0) g/dL RDW Std Deviation 44.9 (36.4-46.3) fL RDW Coeff of Lakeisha 12.6 (11.5-14.5) % Plt Count 200 (130-400) K/uL MPV 9.6 (9.4-12.4) fL Immature Gran % (Auto) 0.3 % Neut % (Auto) 73.9 % Lymph % (Auto) 15.0 % [place] % (Auto) 7.8 % Eos % (Auto) 2.3 % Baso % (Auto) 0.7 % Neut # (Auto) 6.74 H (1.40-6.50) K/uL Lymph # (Auto) 1.37 (1.20-3.40) K/uL [place] # (Auto) 0.71 H (0.11-0.59) K/uL Eos # (Auto) 0.21 (0.00-0.50) K/uL Baso # (Auto) 0.06 (0.00-0.20) K/uL Immature Gran # (Auto) 0.03 (0.01-0.20) K/uL Sodium 139 (136-145) mmol/L Potassium 4.8 TNP Chloride 100 (98-107) mmol/L Carbon Dioxide 34 H (21-32) mmol/L Anion Gap 5 (3-11) BUN 8 (6-23) mg/dl Creatinine 0.62 (0.6-1.2) mg/dl Est Cr Clr Drug Dosing 55.1 ml/min Est GFR ( Amer) 109.7 ml/min Est GFR (Non-Af Amer) 94.6 ml/min BUN/Creatinine Ratio 12.9 (10-20) Glucose 88 (70-99(Fasting)) mg/dl Calcium 9.6 (8.6-10.3) mg/dl Total Creatine Kinase 76 (26-192) U/L Triglycerides 171 H (0-150) mg/dl Cholesterol 116 (0-200) mg/dl LDL Cholesterol, Calc 29 mg/dl VLDL Cholesterol, Calc 34 H (0-30) mg/dl HDL Cholesterol 53 mg/dl Cholesterol/HDL Ratio 2.2 (0-5) Striated Muscle Ab Ttr Pending Striated Muscle Ab Pending Acetylchol Rcpt Bind Ab Pending Medications Administered Current Inpatient Medications Acetaminophen (Acetaminophen 325 Mg Tab) 650 mg PO QID PRN PRN Reason: pain/fever Stop: 03/24/24 05:15 Albuterol (Albuterol Hfa 8 Gm Inhaler) 2 puffs INH Q4H PRN PRN Reason: Wheezing/SOB Stop: 03/23/24 16:05 Clonazepam (Clonazepam 0.5 Mg Tab) 0.5 mg PO BID PRN PRN Reason: Unknown Stop: 03/23/24 16:05 Last Admin: 02/23/24 08:22 Dose: 0.5 mg Escitalopram Oxalate (Escitalopram Oxalate 20 Mg Tab) 20 mg PO DAILY [facility] Stop: 03/24/24 08:59 Last Admin: 02/23/24 08:22 Dose: 20 mg Fluticasone/Vilanterol (Fluticasone/Vilanterol 100/25mcg 14 Puffs/Inhaler) 1 puffs INH QAM [facility] Stop: 03/24/24 08:59 Last Admin: 02/23/24 08:23 Dose: 1 puffs Heparin Sodium (Porcine) (Heparin Sod 5,000 Unit/0.5 Ml Vial) 5,000 units SQ Q12 [facility]Y Stop: 03/23/24 20:59 Last Admin: 02/23/24 08:23 Dose: 5,000 units Hydroxyzine HCl (Hydroxyzine Hcl 25 Mg Tab) 25 mg PO QID PRN PRN Reason: Unknown Stop: 03/23/24 16:05 Losartan Potassium (Losartan Potassium 25 Mg Tab) 25 mg PO DAILY [facility] Stop: 03/24/24 08:59 Last Admin: 02/23/24 08:23 Dose: 25 mg Pantoprazole Sodium (Pantoprazole 40 Mg Tab) 40 mg PO BID [facility] Stop: 03/23/24 20:59 Last Admin: 02/23/24 08:23 Dose: 40 mg Prazosin HCl (Prazosin Hcl 1 Mg Cap) 1 mg PO HS [facility] Stop: 03/24/24 20:59 Propranolol HCl (Propranolol Hcl 10 Mg Tab) 10 mg PO TID [facility] Stop: 03/23/24 16:14 Last Admin: 02/23/24 08:23 Dose: 10 mg
[2024-02-23] MEDS: ACETAMINOPHEN 325 MG TAB PO PRN (20:39)
[2024-02-23] MEDS: PRAZOSIN HCL 1 MG CAP PO SCH (20:40)
[2024-02-24] MEDS: ASPIRIN 81 MG ECTAB PO SCH (10:43)
[2024-02-24] MEDS: ALBUT/IPRATROP 3MG/0.5MG NEB 3 ML VIAL NEB STA (11:15)
--- NOTE | 2024-02-24 14:58 | Hospitalist Progress Note ---
Date of Service February 24, 2024 Assessment & Plan (1) Slurring of speech: Plan: Presented to ER with ongoing slurred speech/garbled speech as per the patient and the family members No significant change in voice Possible strokelike symptoms without any other evidence of neurodeficit and during examination on admission CT head, CTA head and neck - negative. pt is refusing brain MRI Started baby aspirin Neurology consulted and discussed with - Progressive dysphagia with voice changes over the last several months with significant weight loss in a 63F with a PMH of anxiety, tobacco abuse, and HTN. Her exam is largely non-focal and and imaging has been unremarkable. She describes an isolated difficulty swallowing with significant weight loss over the last 6 months. Initially this started will solids and then has progressed to liquids and during this time her voice has changed and she has generally become weaker. Personally i think stroke is unlikely as there hasn't been an acute change in her symptoms but more of a chronic decline. A disorder of muscle is possible but swallowing does appear to be the primary issue. Plan -- can continue ASA -- would check myasthenia panel - ordered -- check CK - normal level -- REIMBURSEMENT REPRESENTATIVE evaluation of swallowing - obtained - pt is not aspirating, has difficulty chewing, also has loose dentures -- outpatient neurology follow up (2) Stroke-like symptoms: Plan: As above (3) Dysphagia: Plan: She has been complaining of problem with swallowing and also dysphonia Has been going on for 2 weeks denies any sore throat or any pain with swallowing speech evaluation obtained, as above (4) Dyslipidemia: Plan: She is intolerant to statin Getting alirocumab subcu injection every 14 days Hypoxia - pt is currently on 2l of suppl. o2 - CXR on admission unremarkable - at home she is on inhalers - Brio Ellipta and albuterol prn - however when reviewed outpt record ([employer]) - there is no listed pulm. diagnosis - discussed w/ RN and resp. therpay - obtained 2 step - needs suppl. O2 w/ ambulation - she has hx of PE, currently not on AC - will obtain CT PE to r/o any recurrent PE Other significant medical condition remained stable and as below Mild cognitive impairment History of pulmonary embolism off any anticoagulation for years History of controlled substance use Lumbar facet arthropathy Panic disorder without agoraphobia Plan DVT prophylaxis Subcu heparin CODE STATUS Full Admission and Anticipated Discharge Date Admission Date: February 22, 2024 Subjective Pt seen in follow up of stroke-like symptoms , dysphagia Seen by neurology - and discussed with - not likely stroke - myasthenia lab work , ck ordered - follow up with outpt neurology Speech eval ordered - and discussed with - pt is not aspirating, but has issues w/ chewing, and poorly fitting dentures Currently sitting up in bed in NAD no fevers, chills, chest pain, shortness of breath, or abd. pain speech is somewhat slurred, has loose dentures Pt is currently on suppl. O2 - 2L - tried to wean off , discussed with RN and res. therapy. Will obtain CT PE , as pt has hx of PE. She is at home on inhaler - but in outpt record (Epic there is no pulmonary diagnosis listed) Review of Systems Review of Systems: All systems reviewed & are unremarkable except as noted in Subjective Physical Exam Physical Exam: Physical Exam: Constitutional: + chronically ill appearing, slim F in NAD Eyes: PERRL, conjunctiva e normal, anicteri c sclerae ENMT: external ear and n ose normal, oropha rynx normal Neck: supple Respiratory: no respiratory dis tress Auscultatio n: + diminished oscar ng sounds; no crac kles and no wheeze s Cardiovascular: Rate/Rhythm: regul ar rate and regula r rhythm; not tach ycardic Heart Елена nds: normal S1, no rmal S2 and + murm ur Extremities: no edema Gastrointestinal ( Abdomen): Inspection/Auscult ation: normal jonah l sounds; abdomen not distended Per cussion/Palpation: abdomen soft; abd omen nontender Musculoskeletal: moves extremities Neurologic: no focal motor def icits Speech / Co gnition: + abnorma l speech (Has had garbled speech as per the patient. No difficulty in w ord finding, she d oes have loose den tures) Besides q uestionable dyspha tiffanie/garbled speech no other neurodef icit noted Results & Data Results & Data Vital Signs (Past 12 Hours) Vital Signs Temp Pulse Pulse Pulse Pulse Pulse Resp 02/24/24 14:09 02/24/24 13:09 89 94 H 85 02/24/24 11:18 85 18 02/24/24 07:40 36.8 C 96 H 16 02/24/24 06:58 83 07/06/24 03:13 36.5 C 104 H 16 Resp Resp Resp BP Pulse Ox Pulse Ox Pulse Ox 02/24/24 14:09 02/24/24 13:09 22 22 18 91 86 L 02/24/24 11:18 98 02/24/24 07:40 104/65 98 02/24/24 06:58 02/24/24 03:13 122/70 95 Pulse Ox O2 Del Method O2 Flow Rate O2 Flow Rate 02/24/24 14:09 Nasal Cannula 2 02/24/24 13:09 91 2 02/24/24 11:18 Nasal Cannula 2 02/24/24 07:40 Nasal Cannula 2 02/24/24 06:58 02/24/24 03:13 Nasal Cannula 2 Medications Administered Current Inpatient Medications Acetaminophen (Acetaminophen 325 Mg Tab) 650 mg PO QID PRN PRN Reason: pain/fever Stop: 03/24/24 05:15 Last Admin: 02/24/24 09:23 Dose: 650 mg Albuterol (Albuterol Hfa 8 Gm Inhaler) 2 puffs INH Q4H PRN PRN Reason: Wheezing/SOB Stop: 03/23/24 16:05 Aspirin (Aspirin 81 Mg Ectab) 81 mg PO QAM [facility] Stop: 03/25/24 09:29 Last Admin: 02/24/24 10:43 Dose: 81 mg Clonazepam (Clonazepam 0.5 Mg Tab) 0.5 mg PO BID PRN PRN Reason: Unknown Stop: 03/23/24 16:05 Last Admin: 02/23/24 20:38 Dose: 0.5 mg Escitalopram Oxalate (Escitalopram Oxalate 20 Mg Tab) 20 mg PO DAILY [facility] Stop: 03/24/24 08:59 Last Admin: 02/24/24 09:23 Dose: 20 mg Fluticasone/Vilanterol (Fluticasone/Vilanterol 100/25mcg 14 Puffs/Inhaler) 1 puffs INH QAM [facility] Stop: 03/24/24 08:59 Last Admin: 02/24/24 09:24 Dose: 1 puffs Heparin Sodium (Porcine) (Heparin Sod 5,000 Unit/0.5 Ml Vial) 5,000 units SQ Q12 [facility] Stop: 03/23/24 20:59 Last Admin: 02/24/24 09:24 Dose: 5,000 units Hydroxyzine HCl (Hydroxyzine Hcl 25 Mg Tab) 25 mg PO QID PRN PRN Reason: Unknown Stop: 03/23/24 16:05 Losartan Potassium (Losartan Potassium 25 Mg Tab) 25 mg PO DAILY [facility] Stop: 03/24/24 08:59 Last Admin: 02/24/24 09:23 Dose: 25 mg Pantoprazole Sodium (Pantoprazole 40 Mg Tab) 40 mg PO BID [facility] Stop: 03/23/24 20:59 Last Admin: 02/24/24 09:23 Dose: 40 mg Prazosin HCl (Prazosin Hcl 1 Mg Cap) 1 mg PO HS [facility] Stop: 03/24/24 20:59 Last Admin: 02/23/24 20:40 Dose: 1 mg Propranolol HCl (Propranolol Hcl 10 Mg Tab) 10 mg PO TID [facility] Stop: 03/23/24 16:14 Last Admin: 02/24/24 13:45 Dose: 10 mg
[2024-02-24] MEDS: OPTIRAY 320 125ml IV ONE (19:33)
[2024-02-24] MEDS: SODIUM CHLORIDE 0.9% 500 ML IV SCH (20:20)
--- NOTE | 2024-02-24 20:27 | CT Scan Report ---
CT angio chest PE protocol CLINICAL HISTORY: PE TECHNIQUE: Multidetector row helical CT of the chest was performed with angiographic protocol. Echols l and sagittal reformations were obtained. Coronal and sagittal MIPS were obtained from the axial bernarda a set and were submitted for review. Automated dose lowering techniques and/or adjustment according to patient size were utilized for this exam. CT DOSE: 217.03 mGy.cm Comparison: Comparison is made to CT chest 09/02/2020 FINDINGS: Lungs and pleura: Atelectasis versus scarring is seen in the dependent portions of the lungs. Heart and pericardium: Cardiomegaly is seen with biatrial enlargement. Vessels: No evidence of pulmonary embolism. Mediastinum and shawn: Unremarkable. Chest wall and lower neck: Unremarkable. Abdomen: Unremarkable. Bones: Degenerative changes in the thoracic spine. IMPRESSION: 1. No acute abnormality and in particular no evidence of pulmonary embolus. 2. Bibasilar atelectasis is seen. ACT 112: Negative or not required by law. Electronically signed by: Rodger Baeza M.D. 02/24/2024 8:24 PM
[2024-02-24] MEDS: ALUMINUM/MAGNESIUM/SIMETH (MAALOX MAX) 30 ML UDC PO PRN (20:41)
[2024-02-25] MEDS: SODIUM CHLORIDE 0.9% 1,000 ML IV SCH (04:26)
[2024-02-25 08:08] LABS: Hematocrit (blood only) 39.6 % (37.0-47.0); Hemoglobin 12.3 g/dl (12.0-16.0); Mean Corpuscular Hemoglobin 30.6 pg (25.0-34.0); Mean Corpuscular Hgb Conc 31.1 g/dL (32.0-36.0); Mean Corpuscular Volume 98.5 fL (80.0-100.0); Mean Platelet Volume 8.8 fL (9.4-12.4); Platelet Count 162 K/uL (130-400); RDW Standard Deviation 43.6 fL (36.4-46.3); Red Blood Count 4.02 M/uL (4.20-5.40); White Blood Count 5.73 K/ul (4.8-10.8)
[2024-02-25 08:24] LABS: BUN Creatinine Ratio 10.9 (10-20); Calcium 8.7 mg/dl (8.6-10.3); Creatinine Clr Calc Pharmacy 81.2 ml/min; Est GFR (Non-African American) 104.4 ml/min; Magnesium 1.9 mg/dl (1.7-2.4); Phosphorus 3.2 mg/dl (2.5-4.9); Potassium 3.9 mmol/L (3.5-5.1)
[2024-02-25 08:50] VITALS: RESP 16
[2024-02-25] MEDS: hydrOXYzine HCl 25 MG TAB PO PRN (10:13)
[2024-02-25 11:48] VITALS: BP 111/70; PULSE 86; TEMP 97.9; O2SAT 96
--- NOTE | 2024-02-25 11:56 | Discharge Summary ---
Date of Service February 25, 2024 Admission HPI Per Admitting Provider She is a 63-year-old female with significant past medical history including major depressive disorder, anxiety with panic attacks, hyperlipidemia, history of pulmonary embolism not on any anticoagulation, mild cognitive impairment and YAS apparently has been complaining of change in her voice with occasional garbled speech and also occasional problem with swallowing for the last 2 weeks. She was brought in with possible strokelike symptoms but denies any problem with vision, any numbness or tingling involving any of the extremities or in the face, any facial asymmetry, any focal weakness involving any of the limbs. When asking questions she denies to have any chest pain, palpitation but she does have occasional shortness of breath with exertion with known history of possible asthma. She denies any abdominal pain, nausea and or vomiting. No problem with urine and her bowel habit. Her initial workup including CT of the head remained unremarkable and she will be admitted to medical telemetry unit with a possible diagnosis of strokelike symptoms and will have a neurological evaluation. An MRI will be done and also echo of the heart will be done. Admission Exam Per Admitting Provider Physical Exam: Lying in bed very anxious but no other apparent distress Constitutional: + ill appearing and + thin Eyes: PERRL, conjunctivae normal, anicteric sclerae ENMT: external ear and nose normal, oropharynx normal Neck: trachea midline, no thyromegaly Respiratory: no respiratory distress Auscultation: + diminished lung sounds; no crackles and no wheezes Cardiovascular: Rate/Rhythm: regular rate and regular rhythm; not tachycardic Heart Sounds: normal S1, normal S2 and + murmur (1/6 to 2/6 ESM over precordium) Extremities: no edema Gastrointestinal (Abdomen): Inspection/Auscultation: normal bowel sounds; abdomen not distended Percussion/Palpation: abdomen soft; abdomen nontender Musculoskeletal: No acute arthritis involving any of the joints Neurologic: normal touch/pain/proprioception and moves all extremities; no focal motor deficits Speech / Cognition: + abnormal speech (Has had garbled speech as per the patient. No difficulty in word finding) Besides questionable dysphasia/garbled speech no other neurodeficit noted Psychiatric: Mood: + anxious mood Lymphatic: no cervical or axillary lymphadenopathy Principal Diagnosis Stroke-like symptoms, concern for poss. dysphagia Discharge Exam Physical Exam: Constitutional: + chronically ill appearing, slim F in N AD Eyes: PERRL, conjunctivae normal, anicteric sclerae ENMT: external ear and nose normal, oropharynx normal Neck: supple Respiratory: no respiratory distress Auscultation: + diminished lung sounds; no crackles and no wheezes Cardiovascular: Rate/Rhythm: regular rate and regular rhythm; not tachycardic Heart Sounds: normal S1, normal S2 and + murmur Extremities: no edema Gastrointestinal (Abdomen): Inspection/Auscultation: normal bowel sounds; abdomen not distended Percussion/Palpation: abdomen soft; abdomen nontender Musculoskeletal: moves extremities Neurologic: no focal motor deficits Speech / Cognition: + abnormal speech (Has had garbled speech as per the patient. No difficulty in word finding, she does have loose dentures) Besides questionable dysphasia/garbled speech no other neurodeficit noted Discharge Data Allergies Allergy/AdvReac Type Severity Reaction Status Date / Time tetracycline Allergy Mild Anaphylaxis Verified 02/22/24 10:34 lisinopril AdvReac Unknown Anaphylaxis Verified 02/22/24 10:34 Consultations 02/22/24 12:18 Consult Neurology Routine Ordered Studies 02/22/24 12:15 CTA head w con [CT angio head w con] Urgent Findings: The ventricles, basal cisterns, and cerebral sulci are normal. There is no acute intracranial hemorrhage or evidence of acute territorial infarction. Neither mass effect, shift of the midline structures, nor abnormal extra-axial fluid collections are shown. Imaged portions of the paranasal sinuses and mastoid air cells are clear. The orbits appear normal. There are no acute fractures of the calvaria or scalp swelling. Impression: No acute intracranial hemorrhage, no evidence of acute territorial infarction or other acute intracranial disease process. CTA neck with con [CT angio neck with con] Urgent IMPRESSION: 1. No occlusion, hemodynamically significant stenosis, or dissection in the major cervical arteries. 2. No occlusion, hemodynamically significant stenosis, aneurysm, dissection, or arteriovenous malformation in the major intracranial arteries. Assessment of stenosis of the internal carotid arteries is based on NASCET criteria. 02/24/24 14:17 CT angio chest PE protocol Urgent FINDINGS: Lungs and pleura: Atelectasis versus scarring is seen in the dependent portions of the lungs. Heart and pericardium: Cardiomegaly is seen with biatrial enlargement. Vessels: No evidence of pulmonary embolism. Mediastinum and shawn: Unremarkable. Chest wall and lower neck: Unremarkable. Abdomen: Unremarkable. Bones: Degenerative changes in the thoracic spine. IMPRESSION: 1. No acute abnormality and in particular no evidence of pulmonary embolus. 2. Bibasilar atelectasis is seen. Hospital Course (1) Slurring of speech: Presented to ER with ongoing slurred speech/garbled speech as per the patient and the family members No significant change in voice Possible strokelike symptoms without any other evidence of neurodeficit and during examination on admission CT head, CTA head and neck - negative. pt is refusing brain MRI Started baby aspirin Neurology consulted and discussed with - Progressive dysphagia with voice changes over the last several months with significant weight loss in a 63F with a PMH of anxiety, tobacco abuse, and HTN. Her exam is largely non-focal and and imaging has been unremarkable. She describes an isolated difficulty swallowing with significant weight loss over the last 6 months. Initially this started will solids and then has progressed to liquids and during this time her voice has changed and she has generally become weaker. Personally i think stroke is unlikely as there hasn't been an acute change in her symptoms but more of a chronic decline. A disorder of muscle is possible but swallowing does appear to be the primary issue. Plan -- can continue ASA -- would check myasthenia panel - ordered -- check CK - normal level -- [employer] evaluation of swallowing - obtained - pt is not aspirating, has difficulty chewing, also has loose dentures -- outpatient neurology follow up (2) Stroke-like symptoms: As above (3) Dysphagia: She has been complaining of problem with swallowing and also dysphonia Has been going on for 2 weeks denies any sore throat or any pain with swallowing speech evaluation obtained, as above (4) Dyslipidemia: She is intolerant to statin Getting alirocumab subcu injection every 14 days Hypoxia - pt has been using suppl. O2 2L on and off - CXR on admission unremarkable - at home she is on inhalers - Brio Ellipta and albuterol prn - however when reviewed outpt record ([facility] EMR) - there is no listed pulm. diagnosis - discussed w/ RN and resp. therpay - obtained 2 step - needs suppl. O2 2L w/ ambulation - she has hx of PE, currently not on AC ->obtained CT PE to r/o any recurrent PE CT PE - 1. No acute abnormality and in particular no evidence of pulmonary embolus. 2. Bibasilar atelectasis is seen. Incentive spirometer encouraged Reviewed oupt record - seems like PFTs ordered but then canceled. Pt is not sure about that. pt is not sure why and who prescribed her inhalers. I called and asked pt's daughter - daughter is not sure about all the pt's work-up and tests but she would like to be included so that test results and medical discussion is clearly communicated and understood. Strongly recommend that pt's family is present during pt's appointments. Other significant medical condition remained stable and as below Mild cognitive impairment History of pulmonary embolism off any anticoagulation for years History of controlled substance use Lumbar facet arthropathy Panic disorder without agoraphobia Total Time Total Time Spent Total Time Spent (In Minutes): 40 Discharge Plan Discharge Items Patient Disposition: Home - Self-Care Reason For Visit: DYSPHASIA,GARBLED SPEECH,DYSPHAGIA Discharge Diagnosis: Stroke-like symptoms, concern for poss. dysphagia Activity: Per Instructions section Non-emergency contact: Primary Care Provider and Neurologist Call non-emergency contact if: you have any medication questions and your symptoms worsen Follow-up/Referrals: Scott Joseph MD [Primary Care Provider] - Diet: Heart Healthy Diet Comment: Minced and moist diet recommended Addtl Attending Provider Instructions: Follow up with your primary care doctor and neurologist. Continue taking aspirin. Follow up with neurology for further work up - pending myasthenia labs, etc. Follow up with pulmonary (lung) doctor and obtain PFTs. For now, use 2L of suppl. O2 via NC with ambulation. Recommend that your family comes with you to your physician's appointments so that all medical discussions are well communicated and understood. Pending Studies at Discharge: Yes Studies:: Myasthenia labs Stand-Alone Forms: [employer], Smoking Cessation Medications and DC Order Prescriptions: New aspirin 81 mg Tablet,Delayed Release (Dr/Ec) 81 mg PO QAM Qty: 30 0RF Continued prazosin 1 mg capsule 1 mg PO DAILY clonazepam 0.5 mg tablet 0.5 mg PO BID PRN (Reason: Unknown) propranolol 10 mg tablet 10 mg PO TID pantoprazole 40 mg tablet,delayed release (DR/EC) 40 mg PO BID losartan 25 mg tablet 25 mg PO DAILY hydroxyzine HCl 25 mg tablet 25 mg PO QID PRN (Reason: Unknown) albuterol sulfate 90 mcg/actuation HFA aerosol inhaler 2 puff INHALATION Q4H PRN (Reason: Wheezing/SOB) escitalopram oxalate 20 mg tablet 20 mg PO DAILY fluticasone furoate-vilanterol [Breo Ellipta] 100-25 mcg/dose blister with device 1 inh INHALATION QAM Praluent Pen 75 mg/mL pen injector 75 mg SUBCUT Q14D Discharge Orders: Discharge Order (Routine); Ordered 02/25/24 Ordered By: Alexandro Felix Admission Data Admit Date/Time: 02/22/24 11:56 Attending Provider: Alexandro Felix Admit Provider: Russell Webber Primary Care Provider: Scott Joseph Other Providers: Teri Aceves; Farrukh Saxena; Teri Ward; Bebeto Zamarripa; Wilmer Merrill; Celio Brand; Jayson Elizabeth; Agueda Rock; Jl Wick; Jason Barton; Rose Marie Wood; Joseph Brooke; Rosenda Garcia; Callie Reyes; Jayson Figueredo; Russell Webber
== END 2024-02-25 14:56 | disposition home or self-care (01) | DRG 392 ==
LOC: ED 11:22 → SUATTDRO 11:56 → 2N 11:56

== ENCOUNTER 2024-04-15 17:46 | Inpatient (IN) ==
--- NOTE | 2024-04-15 17:53 | History & Physical Report ---
Date of Service April 15, 2024 Assessment & Plan (1) Acute respiratory failure with hypoxia and hypercapnia: (2) Acute metabolic encephalopathy: (3) BiPAP (biphasic positive airway pressure) dependence: (4) Shock circulatory: (5) Hematoma: (6) STEMI (ST elevation myocardial infarction): Plan Pt is a 64yoF with PMHx significant for HTN, HLD, anxiety presenting with acute respiratory distress requiring intubation in the field. Comfort Measures only status: On 04/14/24, extensive goals of care discussion with pt and daughters Pete in ICU room 110. Discussion that both Cardiology and Pulmonology are stating a poor prognosis and recommending palliative care consult. With her likely undiagnosed progressing neurological/bulbar disease per Pulmonology, inability to be weaned off bipap and inability to be treated aggressively or conservatively for her MIs. Discussion of her wishes and her Living will that was reviewed on admission that noted that should she get to the point that nothing can be done, she would wish to withdraw care. Daughters at bedside verbalized agreement that her living will did include being made comfortable with no aggressive measures should she get to this point. Pt also stating through the bipap mask with daughters present that she "wants hospice". Per daughter in the room she has been saying that for some time even before admission while awaiting her neurological workup. Pt agreeable to comfort measures but indicates that she wishes to remain on bipap until further discussion tomorrow with palliative care. Discussion that there are other family members to see her. Comfort measures order placed with communication note per charge nurse that pt NEEDS TO REMAIN ON BIPAP UNTIL FURTHER DISCUSSION WITH PALLIATIVE CARE. Pt was evaluated by Palliative care on 04/15 and transitioned to inpatient hospice/GIP. She was previously treated and managed for the following: Acute Hypoxic and Hypercapnic Respiratory Distress Acute Metabolic encephalopathy Reportedly saturating in the 70s at home requiring intubation in the field VBG noting severe acidosis, Tox screen reviewed and negative Chest CTA with no PE Head CT with no acute abnormality Brain MRI with no acute findings Was sedated and intubated in the ICU s/p extubation on 04/11 On precedex Continue to monitor in the ICU -currently on bipap Spontaneous intraperitoneal hematoma Acute Blood Loss Anemia Pt with acute blood loss anemia overnight on 04/12 CT abdomen/pelvis noting "massive left-sided retroperitoneal hemorrhage" In ICU, holding IV heparin Hgb drop to 5, transfuse as needed, goal >7 Shock Hypotensive on admission, requiring pressor supportx2 in the ICU Uncertain cause of shock Lactate elevated, procalcitonin elevated Chest XRAY with possible pneumonia Chest CTA with no concern for infection UA unremarkable, urine Cx with no significant growth Respiratory panel negative Blood Cx x1 set NGTD MRSA nares negative Received IV Zosyn in the ED, continue empirically Echo with EF 50-55%, small apical wall motion abnormality with hypokinesis, mild aortic valve sclerosis w/o significant aortic valve stenosis, mild mitral regurg, mild diffuse R ventricular hypokinesis Was on pressor support (was requiring 2), weaned Elevated trop STEMI Trop elevated at 35 to 124 to [address] elevations on telemetry, was a heart alert in the ICU on 04/09 Echo with EF 50-55%, small apical wall motion abnormality with hypokinesis, mild aortic valve sclerosis w/o significant aortic valve stenosis, mild mitral regurg, mild diffuse R ventricular hypokinesis Interventional cardiology was consulted. Recommended/stated the following: -"...EKG findings and the echocardiogram suggests new apical wall motion abnormality. Unclear if this is the initiating problem or if she has baseline underlying coronary disease with new manifestation during her metabolic derangement. Coronary angiography would be helpful to determine if this is a primary ACS or if this represents a type II non-ACS DE. However, the patient's prognosis and neurologic recovery is certainly in doubt at this time. Therefore, catheterization is currently contraindicated. The ICU team will continue to work on correcting her acidosis, maintaining optimal oxygen and pCO2 levels, resuscitate her fluids and replace her electrolytes as indicated... If these things can improve then cardiac catheterization would be undertaken. The fact that she has good EF and only a small area of wall motion abnormality suggests reasonably good cardiac prognosis. I agree with instituting heparin drip and supporting her blood pressure with pressors as needed..." On IV heparin, continue Hypernatremia Sodium 151 on admission Currently wnl Hypokalemia Hypophosphatemia Hypomagnesemia Repleted as needed Sacral bruising Pressure induced deep tissue injury of sacrum, POA Wound care consulted, appreciate recs Held home oral meds while pt intubated and critically ill. CODE STATUS: DNR/DNI, comfort measures at this time. 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 History obtained from medical staff and pt's daughter/KHUSHBOO Malik. States that pt had a neurology appointment on day of admission and so her sister and daughter went over to pt's apartment to take her and found her unresponsive in her recliner. Daughter states that she has been more confused for the past few days, notes that the confusion has been progressing from earlier this year. States she even had testing done which showed that she has mild dementia. Pt has also been com plaining of dysphagia and has been having trouble eating. This was noted at her last hospitalization and she was referred to Neurology with pending myasthenia Gravis panel that has since come back negative. Daughter notes that she has been hyperactive the last few days even though confused. Denies any lethargy. States pt does use oxygen at baseline but unsure of her diagnosis. 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 States she moved 10 days ago to the [facility] apartment she is in to be closer to family. She was last noted well day [employer] PROC[employer] EXP[employer], per daughter she had not been picking up her phone calls this morning. On 04/14/24, extensive goals of care discussion with pt and daughters Pete in ICU room 110. Discussion that both Cardiology and Pulmonology are stating a poor prognosis and recommending palliative care consult. With her likely undiagnosed progressing neurological/bulbar disease per Pulmonology, inability to be weaned off bipap and inability to be treated aggressively or conservatively for her MIs. Discussion of her wishes and her Living will that was reviewed on admission that noted that should she get to the point that nothing can be done, she would wish to withdraw care. Daughters at bedside verbalized agreement that her living will did include being made comfortable with no aggressive measures should she get to this point. Pt also stating through the bipap mask with daughters present that she "wants hospice". Per daughter in the room she has been saying that for some time even before admission while awaiting her neurological workup. Pt agreeable to comfort measures but indicates that she wishes to remain on bipap until further discussion tomorrow with palliative care. Discussion that there are other family members to see her. Comfort measures order placed with communication note per charge nurse that pt NEEDS TO REMAIN ON BIPAP UNTIL FURTHER DISCUSSION WITH PALLIATIVE CARE. Pt was evaluated by Palliative care on 04/15 and transitioned to inpatient hospice/GIP . Allergies Allergy/AdvReac Type Severity Reaction Status Date / Time tetracycline Allergy Severe Anaphylaxis Verified 04/09/24 16:10 lisinopril AdvReac Severe Anaphylaxis Verified 04/09/24 16:10 Home Medications Medication Instructions Recorded Confirmed Type albuterol sulfate 90 mcg/actuation 2 puff inhalation Q4H PRN 02/22/24 04/09/24 History aerosol inhaler Wheezing/SOB alirocumab 75 mg/mL subcutaneous 75 mg subcut Q14D 02/22/24 04/09/24 History pen injector (Praluent Pen) clonazepam 0.5 mg tablet 0.5 mg PO BID PRN Unknown 02/22/24 04/09/24 History escitalopram oxalate 20 mg tablet 20 mg PO QAM 02/22/24 04/09/24 History fluticasone furoate 100 1 inh inhalation QAM 02/22/24 04/09/24 History mcg-vilanterol 25 mcg/dose inhalation powder (Breo Ellipta) hydroxyzine HCl 25 mg tablet 25 mg PO QID PRN Unknown 02/22/24 04/09/24 History losartan 25 mg tablet 25 mg PO QAM 02/22/24 04/09/24 History pantoprazole 40 mg tablet,delayed 40 mg PO BID 02/22/24 04/09/24 History release prazosin 1 mg capsule 1 mg PO HS 02/22/24 04/09/24 History propranolol 10 mg tablet 10 mg PO UD 02/22/24 04/09/24 History aspirin 81 mg tablet,delayed 81 mg PO QAM #30 tabs 02/25/24 04/09/24 Rx release acyclovir 200 mg capsule 200 mg PO BID PRN Rash 04/09/24 04/09/24 History clotrimazole 10 mg tabatha 10 mg PO DIRECTED 04/09/24 04/09/24 History hydrocortisone 2.5 % topical cream 1 ea FL BID 04/09/24 04/09/24 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 ([employer] [facility]) Past Med/Surg History Problem List (Updated 04/15/24 @ 18:01 by Angela Wright MD) STEMI (ST elevation myocardial infarction) Hematoma BiPAP (biphasic positive airway pressure) dependence Acute metabolic encephalopathy Need for comfort care Advanced care planning/counseling discussion Palliative care by specialist Weakness generalized Dyspnea and respiratory abnormalities Chest pain Cachexia Intraabdominal hemorrhage Elevated troponin I level (Acute) Electrolyte abnormality (Acute) Acute respiratory failure with hypoxia and hypercapnia (Acute) CANDY (acute kidney injury) COPD with emphysema Acute respiratory failure with hypercapnia Encephalopathy acute Shock circulatory (Acute) Dyslipidemia Anxiety Dehydration (Acute) Dysphagia (Acute) Stroke-like symptoms (Acute) Chest pain Encounter for pre-operative examination Medical History GERD (gastroesophageal reflux disease) Hyperlipidemia Atrial tachycardia Remote episodes several years ago (felt possibly r/t caffeine), no issues since Right leg DVT Per remote records Pulmonary embolus Per remote records Anxiety Surgical History History of arthroscopy Right shoulder History of bladder surgery History of hysterectomy Social History Smoking Status: Former smoker Tobacco Type: Cigarettes Second Hand Exposure: No; Do You Dip or Chew Tobacco: No; Hx Alcohol Use: No Hx Substance Use: No Preferred Language: [place]an Communication Ability: Impaired Facility Coordinator Required: No Beliefs That Will Affect Care: None Current Living Situation: Alone Feels Safe at Home: Declines to Answer Gender Identity: Female Assistive Devices: Oxygen - Continuous Review of Systems Review of Systems: All systems reviewed & are unremarkable except as noted in Subjective Physical Exam Physical Exam: General:extubated, mask on face Neuro: extubated and alert HEENT: NC/AT Resp: mask in place, no increased effort of breathing.
[2024-04-15] MEDS ORDERED: HYDROmorphone INJ 0.5 MG/0.5 ML SYR IV PRN (17:55)
[2024-04-15] MEDS ORDERED: LORazepam 0.5 MG in SYRINGE 0.25 ML IV PRN (17:55)
[2024-04-15] MEDS ORDERED: GLYCOPYRROLATE 0.2 MG/ML VIAL IV PRN (17:55)
[2024-04-15] MEDS ORDERED: MoRPHine SULFATE 10 MG/0.5 ML UDP PO PRN (17:55)
[2024-04-15] MEDS ORDERED: ONDANSETRON INJ 2 MG/ML 2 ML VIAL IV PRN (17:55)
[2024-04-15] MEDS: Patient's HEIGHT &/or WEIGHT Needed SCH (18:43)
[2024-04-16] MEDS ORDERED: HYDROmorphone Bolus from PCA IV PRN (00:47)
[2024-04-16] MEDS: HYDROmorphone PCA 30 MG/30 ML IV PRN (01:13)
[2024-04-16] MEDS: SODIUM CHLORIDE 0.9% 1,000 ML IV SCH (01:13)
--- OUTSIDE RECORDS SUMMARY | 2024-04-16 07:26 | External Medical Summary | Summary of Care ---
Author Name Unknown Organization [facility] Address [address] [address] Phone [phone] Care Team Providers Care Blood Bank Booking Clerk Name Role Phone Norma Manning DO Primary Care Provider Reason for Visit * Reason Onset Date Comments No Show 04/13/2024 [facility] No Show Auto mation Encounter Details Date Type Department Care Team (Late st Contact Info) Description 04/13/2024 Telephone Neurology [facility] [address] [place] [address] Celio Brand DO [address] [place] [address] No Show ([place] No Show Automation) Allergies Active Allergy Reactions Criticality Noted Date Comments Lisinopril 01/31/2020 Cough Tetracycline 01/19/2001 rash documented as of this encounter (statuses as of 04/13/2024) Medications Medication Sig Dispensed Refills Start Date End Date Status Betamethasone Dipropionate Aug 0.05 % External Ointment (Diprolene AF)Indications:Ecz heidi, unspecified type apply topically for eczema 2 times a day 45 g 3 05/10/2022 Active Ensure Oral LiquidIndications: Loss of weight Take 237 mL by mouth in the morning and 237 mL at noon and 237 mL before bedtime. 237 mL 12 05/25/2023 Active Premarin 0.625 MG/GM Vaginal Cream (Estrogens Conjugated)Indicat ions:Chronic vaginitis Administer 0.5 g into the vagina once a day Monday and only. Use 0.5 g with applicator at bedtime 42.5 g 6 05/25/2023 Active Additional Information Patient not taking.Reported on 03/01/2024 Diclofenac Sodium 1 % External Gel (Voltaren)Indicati ons:Lumbar facet arthropathy Apply topically to affected area 3 times a day as needed for Pain, Moderate. Apply 2 gm to skin as needed for pain, up to 3 times daily 60 g 3 05/25/2023 Active Praluent 75 MG/ML Subcutaneous Solution Auto-injector (Alirocumab) Inject 75 mg (1 pen) under the skin every 14 days. 6 mL 3 10/16/2023 Active Ondansetron HCl 4 MG Oral Tablet Take 1 Tablet by mouth every 6 hours as needed for Nausea. 30 Tablet 10/24/2023 Active Additional Information Patient not taking.Reported on 03/01/2024 One-A-Day Womens 50+ Oral Tablet Take 1 Tablet by mouth every morning. Active clonazePAM 0.5 MG Oral Tablet (KlonoPIN) Take 1 Tablet by mouth in the morning and 1 Tablet before bedtime. Take 1 tablet twice daily . 12/18/2023 Active Escitalopram Oxalate 20 MG Oral Tablet (Lexapro) Take 1 Tablet by mouth in the morning. 30 Tablet 5 01/30/2024 Active Fluticasone Furoate-Vilanterol 100-25 MCG/ACT Inhalation Aerosol Powder Breath Activated (BREO ellipta)Indication s:Restrictive lung disease Inhale 1 Puff by mouth in the morning. 60 Blister Dosing Unit 3 01/30/2024 Active hydrOXYzine HCl 25 MG Oral TabletIndications: Anxiety Take 1 Tablet by mouth 3 times a day as needed for Anxiety. 90 Tablet 3 01/30/2024 Active Losartan Potassium 25 MG Oral Tablet (Cozaar)Indication s:HTN, goal below 140/90 Take 1 Tablet by mouth in the morning. In the morning.. 30 Tablet 9 01/30/2024 Active Ventolin HFA 108 (90 Base) MCG/ACT Inhalation Aerosol SolutionIndication s:Shortness of breath Inhale 2 Puffs by mouth every 4 hours as needed for Shortness of Breath. 18 g 3 01/30/2024 Active Propranolol HCl 10 MG Oral Tablet (Inderal) Take 1 Tablet by mouth in the morning and 1 Tablet at noon and 1 Tablet before bedtime. 90 Tablet 3 01/30/2024 Active Prazosin HCl 1 MG Oral Capsule (Minipress) Take 1 Capsule by mouth at bedtime. 90 Capsule 3 01/30/2024 Active Pantoprazole Sodium 40 MG Oral Tablet Delayed Release (Protonix)Indicati ons:Loss of weight,Epigastric pain TAKE ONE TABLET TWICE DAILY BEFORE MEALS 60 Tablet 3 02/24/2024 Active Aspirin 81 MG Oral Tablet Delayed Release (SB Low Dose ASA EC) Take 1 Tablet by mouth in the morning. Active Acyclovir 200 MG Oral Capsule (Zovirax) Take 1 Capsule by mouth 2 times a day as needed (rash). 30 Capsule 3 03/07/2024 Active Hydrocortisone (Perianal) 2.5 % External Cream Administer into the rectum 2 times a day. For up to 2 weeks. 28 g 03/26/2024 Active Clotrimazole 10 MG Mouth/Throat Jorge (Mycelex Jorge) Take 1 Lozenge by mouth 5 times a day for 14 days. Allow tablet to slowly dissolve in your mouth 70 Jorge 04/02/2024 Active Hospital, Clinic, or Other Facility Administered Medication Ordered Dose Route Frequency Start Date End Date Status Albuterol Sulfate (Proventil) (2.5 MG/3ML) 0.083% inhalation solution 2.5 mgIndications:Shortness of breath 2.5 mg NEBULIZER ONCE PRN 10/06/2023 10/05/2024 Active Albuterol Sulfate (Proventil) (2.5 MG/3ML) 0.083% inhalation solution 2.5 mgIndications:Shortness of breath 2.5 mg NEBULIZER ONCE PRN 10/31/2023 10/30/2024 Active documented as of this encounter (statuses as of 04/13/2024) Active Problems Problem Noted Date Diagnosed Date Loss of weight 03/01/2024 Protein-calorie malnutrition 03/01/2024 PFO (patent foramen ovale) 02/29/2024 YAS (generalized anxiety disorder) 12/25/2023 Panic disorder without agoraphobia 12/25/2023 Mild cognitive impairment 12/25/2023 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 without prior episode 10/06/2023 RBBB (right bundle branch block) 07/10/2023 Statin intolerance 07/10/2023 History of pulmonary embolism 12/08/2020 Advanced directives, counseling/discussion 03/01 Controlled substance agreement signed 05/11/2018 Intrinsic eczema 05/11/2018 Panic attacks 03/28/2017 Hyperlipidemia with target LDL less than 100 03/2017 Adjustment insomnia 03/28/2017 Lumbar facet arthropathy 09/22/2016 Anxiety 11/10/2014 documented as of this encounter (statuses as of 04/13/2024) Resolved Problems Problem Noted Date Diagnosed Date Resolved Date Pulmonary embolus 10/23/2020 12/08/2020 DVT (deep venous thrombosis) 10/23/2020 12/08/2020 Urge incontinence of urine 11/16/2018 1 Urinary incontinence without sensory awareness 11/16/2018 06/09/2021 Stress incontinence 05/11/2018 03/01/20 Postural urinary incontinence 03/28/2017 05/11/2018 MEDICATION USE AGREEMENT 01/06/2015 Overview: Signed 01/06/2015 Farrukh Mott III, MD [facility] [place] Back pain 12/29/2014 03/28/2017 Depression 11/10/2014 03/28/2017 documented as of this encounter (statuses as of 04/13/2024) Immunizations Name Administration Dates Next Due Covid-19 Ad26, Single Dose (Xochitl/J&J) 11/29/2020 Pneumococcal Conjugate Vacci ne, 20-valent ([id number]) 04/21/2023 Season Influenza, Quad, PF, Adjuvanted, 65+ Yrs, IM (FLUAD) 04/21/2023,06/04/2020 Seasonal Influenza, PF, 6 M & above, IM , (FluLaval or Fluzone) 07/05/2022,06/09/2021,06/01/2019,2017 Seasonal Influenza, Quadriva lent, No Preserve, IM 06/05/2015 Seasonal Influenza, Split, I IV3, No Preserve, Inj 06/04/2016 TDAP (age 10 and older)(Boostrix) 01/31/2020,08/2009 Zoster Vaccine Recombinant (Shingrix) 10/19/2021 documented as of this encounter Social History Tobacco Use Types Packs/Day Years Used Date Smoking Tobacco: Former Cigarettes 1 0 09/20/1974 - 09/20/1998 Smokeless Tobacco: Never Alcohol Use Standard Drinks/Week Comments No 0 (1 standard drink = 0.6 oz pur e alcohol) PHQ-2 Answer Date Recorded PHQ Adult Total Score 9 01/01/2024 Hunger Vital Sign Answer Date Recorded Within the past 12 months, y ou worried that your food would run out before you got the money to buy more. Never true 01/01/20 24 Within the past 12 months, t he food you bought just didn't last and you didn't have money to get more. Never true 01/01/2024 Childcare Answer Date Recorded Do you feel overwhelmed with taking care of a child, family member or friend? No 01/01/2024 Does your family need help f inding childcare? (Household - for ages 0-17 years) Not on file 01/01/2024 Clothing Answer Date Recorded Have you been unable to get clothing when it was really needed? No 01/01/2024 Is your family able to get c lothes or diapers when needed? (Household - for ages 0-17 years) Not on file 01/01/2024 Personal Safety Answer Date Recorded Do you feel unsafe or have concerns for your saf ety? No 01/01/2024 Do you have concerns for you r family's safety? (Household - for ages 0-17 years) Not on file 01/01/2024 Utilities Answer Date Recorded Do you have trouble paying y our heating, water, or electric bill? No 01/01/2024 Is your family able to pay t he heat, water, or electric bill? (Household - for ages 0-17 years) Not on file 01/01/2024 Does your family have access to good internet? (Household - for ages 0-17 years) Not on file 01/01/2024 Employment Status Answer Date Recorded Are you unemployed or without regular income? No 01/01/2024 Does the household have a re gular source of income? (Household - for ages 0-17 years) Not on file 01/01/2024 Social Connections Answer Date Recorded How often do you feel lonely or isolated from th ose around you? Often 01/01/2024 Financial Resource Strain Answer Date R ecorded Do you have any trouble payi ng for your medications, or do you think you might in the future? No 01/01/2024 Does your family have troubl e paying for medicine? (Household - for ages 0-17 years) Not on file 01/01/2024 Transportation Needs Answer Date Record ed READ ONLY Do you have troubl e getting a ride to medical visits or work? Never True 01/01/2024 Does your family have a hard time getting a ride to doctors visits? (Household - for ages 0-17 years) Not on file 01/01/2024 Has lack of transportation k ept you from medical appointments, meetings, work, or from getting things needed for daily living? Check all that apply. (Adult - for ages 18 years and over) Not on file 01/01/2024 Do you (or your family) have trouble finding or paying for a ride (transportation)? (Household - for ages 0-17 years) Not on file 01/01/2024 Housing Stability Answer Date Recorded Do you currently live in a s helter or have no steady place to sleep at night? No 01/01/2024 READ ONLY Do you think you a re at risk of becoming homeless? No 01/01/2024 Does your family worry about paying for your home or becoming homeless? (Household - for ages 0-17 years) Not on file 0 01/01/2024 Are you homeless or worried that you might be in the future? (Adult - for ages 18 years and over) Not on file Are you (or your family) nelly eless or worried that you might be in the future? (Household - for ages 0-17 years) Not on file Food Insecurity Answer Date Recorded Do you need food for this week? No 01/01/2024 Are you able to get enough f ood for your family? (Household - for ages 0-17 years) Not on file 01/01/2024 Does your family need food t his week? (Household - for ages 0-17 years) Not on file 01/01/2024 Do you always have enough fo od for your family? (Household - for ages 0-17 years) Not on file 01/01/2024 Sex and Gender Information Value Date Recorded Sex Assigned at Female 12/09/2022 10:04 AM EDT Gender Identity Female 12/09/2022 10:04 AM EDT Sexual Orientation Not on file Job Start Date Occupation Industry Not on file Not on file Not on file documented as of this encounter Miscellaneous Notes * Telephone Encounter - Rafi, No Show - 04/13/2024 8:01 AM EDT Dear Sarah Petit, Looks like you missed an appointment with CELIO BRAND on 04/09/2024 at 10:00 AM. If you haven't already rescheduled, you have a couple of options: Reschedule in [email or web address]/scheduling Call us at [phone] Can't make a future appointment? Cancel and let someone else have your spot! It's easy to do via [email or web address] or by calling us. Thanks for trusting [facility] with your care. We hope to see you back in our office soon. Sincerely, CELIO BRAND documented in this encounter Plan of Treatment Upcoming Encounters Date Type Department Care Team (Late st Contact Info) Description 05/15/2024 9:00 AM EDT Office Visit Cardiology, [facility] [address] [place] [address] Herlinda Clemente PA-C [address] [place] [address] 06/28/2024 8:20 AM EST [address] [place] [phone] Riri Muniz PA-C [address] [place] [address] [place] [id number] 03/04/2025 2:30 PM EDT Office Visit Family [address] [phone] Norma Manning DO [address] [place] [address] [place] [id number] Scheduled Procedures Name Priority Associated Diagnoses Date/Ti me COLONOSCOPY FLEXIBLE PROXIMAL DIAGNOSTIC Recall History of colon polyps Health Maintenance Due Date Last Done Comments Hepatitis C Screening 1976 Cologuard 2003 Sigmoidoscopy 2003 Fecal Occult Blood Test 11/19/2011 11/19/19 11, 04/07/2009, 09/27/2006 Zoster Vaccines (2 of 2) 12/14/2021 10/19/2021 Mammogram 03/26/2022 03/26/2021, 09/21, 09/29/2008, Additional history exists DXA Scan 2023 COVID-19 Vaccine (3 - 2022- season) 2023 10/19/2021, 11/29/2020 Adult Wellness Visit 2024 Influenza Vaccine (FLU shot) (#1) 2024 04/21/2023, 07/05/2022, 06/09/2021, Additional history exists Depression Monitoring 12/31/2024 01/01/2024 Colonoscopy 03/16/2026 03/16/2021, 02/19, 03/04/2016, Additional history exists Colorectal Cancer Screening 03/16/2026 Lipid Panel 10/06/2028 10/06/2023, 12/2022, 11/25/2022, Additional history exists DTaP,Tdap,and Td Vaccines (3 - Td or Tdap) 01/30/2030 01/31/2020, 08/21/2009 RETIRED - COLONOSCOPY-EVERY 5 YRS AGES 18-100 Discontinued 03/16/2021, 03/16/2021, 03/04/2016, Additional history exists Pneumococcal Vaccine: 65+ Years Completed 04/21/2023 HPV (Gardasil) Vaccine Aged Out No lo nger eligible based on patient's age to complete this topic Hepatitis B Vaccine Aged Out No longe r eligible based on patient's age to complete this topic MENINGOCOCCAL (MENACTRA/MENVEO) Aged Out No longer eligible based on patient's age to complete this topic documented as of this encounter Medical Devices Implanted Type Area Hand Deicer Element Winder Device Identifier Shelf Expiration Date Model / Serial / Lot Obtryx Halo Syst Hand Endband Cutter Jama - [id number] Implanted:Qty: 1 on 02/12/2019 by Alfonso Lay DO at OR [facility] N/A: Vaginal Vault [employer] 11/11/2021 [id number] / / [id number] documented as of this encounter Advance Directives Documents on File Type Date Recorded 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 Question Answer Comments Discussion of Advance Directives occurred with: Not Discussed Does the patient have a Living Will? No Does the patient have Health Care Power of Attor chelsy? No Care Teams Blood Bank Booking Clerk Relationship Specialty Start Date End Date Norma Manning DO [address] [place] [address] [place] [id number] PCP - General Internal Medicine 03/28/17 documented as of this encounter
--- NOTE | 2024-04-16 07:45 | Discharge Summary ---
Discharge Summary Date of Service April 16, 2024 Principal Dx & Hospital Course #1 = Principal Diagnosis (1) Acute respiratory failure with hypoxia and hypercapnia: (2) Acute metabolic encephalopathy: (3) BiPAP (biphasic positive airway pressure) dependence: (4) Shock circulatory: (5) Hematoma: (6) STEMI (ST elevation myocardial infarction): Plan Pt is a 64yoF with PMHx significant for HTN, HLD, anxiety presenting with acute respiratory distress requiring intubation in the field. Comfort Measures only status: On 04/14/24, extensive goals of care discussion with pt and daughters Kaylah and King in ICU room 110. Discussion that both Cardiology and Pulmonology are stating a poor prognosis and recommending palliative care consult. With her likely undiagnosed progressing neurological/bulbar disease per Pulmonology, inability to be weaned off bipap and inability to be treated aggressively or conservatively for her MIs. Discussion of her wishes and her Living will that was reviewed on admission that noted that should she get to the point that nothing can be done, she would wish to withdraw care. Daughters at bedside verbalized agreement that her living will did include being made comfortable with no aggressive measures should she get to this point. Pt also stating through the bipap mask with daughters present that she "wants hospice". Per daughter in the room she has been saying that for some time even before admission while awaiting her neurological workup. Pt agreeable to comfort measures but indicates that she wishes to remain on bipap until further discussion tomorrow with palliative care. Discussion that there are other family members to see her. Comfort measures order placed with communication note per charge nurse that pt NEEDS TO REMAIN ON BIPAP UNTIL FURTHER DISCUSSION WITH PALLIATIVE CARE. Pt was evaluated by Palliative care on 04/15 and transitioned to inpatient hospice/GIP. Pt passed early in the morning on 04/16/24 at at 0450. She was previously treated and managed for the following: Acute Hypoxic and Hypercapnic Respiratory Distress Acute Metabolic encephalopathy Reportedly saturating in the 70s at home requiring intubation in the field VBG noting severe acidosis, Tox screen reviewed and negative Chest CTA with no PE Head CT with no acute abnormality Brain MRI with no acute findings Was sedated and intubated in the ICU s/p extubation on 04/11 On precedex Continue to monitor in the ICU -currently on bipap Spontaneous intraperitoneal hematoma Acute Blood Loss Anemia Pt with acute blood loss anemia overnight on 04/12 CT abdomen/pelvis noting "massive left-sided retroperitoneal hemorrhage" In ICU, holding IV heparin Hgb drop to 5, transfuse as needed, goal >7 Shock Hypotensive on admission, requiring pressor supportx2 in the ICU Uncertain cause of shock Lactate elevated, procalcitonin elevated Chest XRAY with possible pneumonia Chest CTA with no concern for infection UA unremarkable, urine Cx with no significant growth Respiratory panel negative Blood Cx x1 set NGTD MRSA nares negative Received IV Zosyn in the ED, continue empirically Echo with EF 50-55%, small apical wall motion abnormality with hypokinesis, mild aortic valve sclerosis w/o significant aortic valve stenosis, mild mitral regurg, mild diffuse R ventricular hypokinesis Was on pressor support (was requiring 2), weaned Elevated trop STEMI Trop elevated at 35 to 124 to [address] elevations on telemetry, was a heart alert in the ICU on 04/09 Echo with EF 50-55%, small apical wall motion abnormality with hypokinesis, mild aortic valve sclerosis w/o significant aortic valve stenosis, mild mitral regurg, mild diffuse R ventricular hypokinesis Interventional cardiology was consulted. Recommended/stated the following: -"...EKG findings and the echocardiogram suggests new apical wall motion abnor mality. Unclear if this is the initiating problem or if she has baseline underlying coronary disease with new manifestation during her metabolic derangement. Coronary angiography would be helpful to determine if this is a primary ACS or if this represents a type II non-ACS MT. However, the patient's prognosis and neurologic recovery is certainly in doubt at this time. Therefore, catheterization is currently contraindicated. The ICU team will continue to work on correcting her acidosis, maintaining optimal oxygen and pCO2 levels, resuscitate her fluids and replace her electrolytes as indicated... If these things can improve then cardiac catheterization would be undertaken. The fact that she has good EF and only a small area of wall motion abnormality suggests reasonably good cardiac prognosis. I agree with instituting heparin drip and supporting her blood pressure with pressors as needed..." On IV heparin, continue Hypernatremia Sodium 151 on admission Currently wnl Hypokalemia Hypophosphatemia Hypomagnesemia Repleted as needed Sacral bruising Pressure induced deep tissue injury of sacrum, POA Wound care consulted, appreciate recs Held home oral meds while pt intubated and critically ill. CODE STATUS: DNR/DNI, comfort measures at this time. DVT prophylaxis: On IV heparin, on hold currently Diet: NPO Dispo: med/surg Notes For Next Care Provider pt Medication Changes From Visit None- pt Admission HPI Per Admitting Provider Pt is a 64yoF with PMHx significant for HTN, HLD, anxiety presenting with acute respiratory distress requiring intubation in the field. History obtained from medical staff and pt's daughter/KHUSHBOO Malik. States that pt had a neurology appointment on day of admission and so her sister and daughter went over to pt's apartment to take her and found her unresponsive in her recliner. Daughter states that she has been more confused for the past few days, notes that the confusion has been progressing from earlier this year. States she even had testing done which showed that she has mild dementia. Pt has also been complaining of dysphagia and has been having trouble eating. This was noted at her last hospitalization and she was referred to Neurology with pending myasthenia Gravis panel that has since come back negative. Daughter notes that she has been hyperactive the last few days even though confused. Denies any lethargy. States pt does use oxygen at baseline but unsure of her diagnosis. 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 States she moved 10 days ago to the [facility] apartment she is in to be closer to family. She was last noted well day [employer], per daughter she had not been picking up her phone calls this morning. On 04/14/24, extensive goals of care discussion with pt and daughters Kaylah carmencita Malik in ICU room 110. Discussion that both Cardiology and Pulmonology are stating a poor prognosis and recommending palliative care consult. With her likely undiagnosed progressing neurological/bulbar disease per Pulmonology, inability to be weaned off bipap and inability to be treated aggressively or conservatively for her MIs. Discussion of her wishes and her Living will that was reviewed on admission that noted that should she get to the point that nothing can be done, she would wish to withdraw care. Daughters at bedside verbalized agreement that her living will did include being made comfortable with no aggressive measures should she get to this point. Pt also stating through the bipap mask with daughters present that she "wants hospice". Per daughter in the room she has been saying that for some time even before admission while awaiting her neurological workup. Pt agreeable to comfort measures but indicates that she wishes to remain on bipap until further discussion tomorrow with palliative care. Discussion that there are other family members to see her. Comfort measures order placed with communication note per charge nurse that pt NEEDS TO REMAIN ON BIPAP UNTIL FURTHER DISCUSSION WITH PALLIATIVE CARE. Pt was evaluated by Palliative care on 04/15 and transitioned to inpatient hospice/GIP . Admission Exam Per Admitting Provider General:extubated, mask on face Neuro: extubated and alert HEENT: NC/AT Resp: mask in place, no increased effort of breathing. Discharge Exam General:extubated, mask on face Neuro: extubated and alert HEENT: NC/AT Resp: mask in place, no increased effort of breathing. Updated Medication List Medication Instructions Recorded Confirmed Type albuterol sulfate 90 mcg/actuation 2 puff inhalation Q4H PRN 02/22/24 04/09/24 History aerosol inhaler Wheezing/SOB alirocumab 75 mg/mL subcutaneous 75 mg subcut Q14D 02/22/24 04/09/24 History pen injector (Praluent Pen) clonazepam 0.5 mg tablet 0.5 mg PO BID PRN Unknown 02/22/24 04/09/24 History escitalopram oxalate 20 mg tablet 20 mg PO QAM 02/22/24 04/09/24 History fluticasone furoate 100 1 inh inhalation QAM 02/22/24 04/09/24 History mcg-vilanterol 25 mcg/dose inhalation powder (Breo Ellipta) hydroxyzine HCl 25 mg tablet 25 mg PO QID PRN Unknown 02/22/24 04/09/24 History losartan 25 mg tablet 25 mg PO QAM 02/22/24 04/09/24 History pantoprazole 40 mg tablet,delayed 40 mg PO BID 02/22/24 04/09/24 History release prazosin 1 mg capsule 1 mg PO HS 02/22/24 04/09/24 History propranolol 10 mg tablet 10 mg PO UD 02/22/24 04/09/24 History aspirin 81 mg tablet,delayed 81 mg PO QAM #30 tabs 02/25/24 04/09/24 Rx release acyclovir 200 mg capsule 200 mg PO BID PRN Rash 04/09/24 04/09/24 History clotrimazole 10 mg tabatha 10 mg PO DIRECTED 04/09/24 04/09/24 History hydrocortisone 2.5 % topical cream 1 ea AL BID 04/09/24 04/09/24 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 (Procto-Med ) Hospital Stay Data Discharge Instructions Given to Patient (Per Discharging Provider) Pt Total Time Total Time Spent Total Time Spent (In Minutes): 65
== END 2024-04-16 06:38 | disposition expired | DRG 189 ==
LOC: 3W 17:46